=== PATIENT | male | born 1990 | race Caucasian/White ===

== ENCOUNTER 2020-07-11 10:15 | Emergency (ER) | payer MEDICAID, SELFPAY ==
--- NOTE | 2020-07-11 | XR_ITS ---
EXAMINATION: XR SOFT TISSUE NECK CLINICAL INDICATION: Pleural pain COMPARISON: None TECHNIQUE: 2 views of the soft tissue neck were obtained. FINDINGS: Soft tissues the neck have a normal appearance. No thickening of the epiglottis or aryepiglottic folds. The prevertebral soft tissue thickness is normal. No radiopaque foreign body or soft tissue gas. The cervical vertebra have normal height and alignment, and disc spaces are maintained. The lung apices are normal. IMPRESSION: Unremarkable examination.
[2020-07-11 10:51] VITALS: BP 118/83; PULSE 72; RESP 16; TEMP 37.2; O2SAT 99; BMI 25.1
--- NOTE | 2020-07-11 10:59 | ED_ITS ---
HPI - General Adult General Chief complaint: Upper Respiratory Symptoms Stated complaint: Throat Pain Time Seen by Provider: 07/11/20 10:57 Source: patient Mode of arrival: ambulatory Limitations: no limitations History of Present Illness HPI narrative: c/o sore throat malaise,feeling of acid in the esophagua complaint: throat pain Onset (ago): hour(s) (1) Location: mouth Radiation: non-radiation Severity: moderate Severity scale (1-10): 4 Quality: aching Exacerbating factors: none Related Data Previous Rx's Medication Instructions Recorded amoxicillin 500 mg PO Q8H 10 Days #30 cap 07/11/20 ibuprofen 800 mg PO Q8H PRN #10 tab 07/11/20 prednisone 60 mg PO DAILY 3 Days #9 tab 07/11/20 Allergies Allergy/AdvReac Type Severity Reaction Status Date / Time No Known Allergies Allergy Verified 07/11/20 10:56 [No Known Allergies*] Review of Systems Review of Systems: Yes all other systems are reviewed and are negative PMFSH Past Medical History Source: nursing notes reviewed Medical History (Updated 07/11/20 @ 14:12 by Rolando Montgomery MD) No known health problems Social History Social History Advance Directives: No Advance Directives Information Provided: Yes Physical Exam Vital Signs: Vital Signs: Vital Signs Temp Pulse Resp BP Pulse Ox 07/11/20 12:21 98.9 F 76 16 123/78 07/11/20 10:51 98.9 F 72 16 118/83 99 Body Mass Index 25.1 Const: General: cooperative and healthy appearing HENMT: Head: Yes normal to inspection Ears: hearing grossly normal bilate rally General nose exam: Normal external nose present Teeth and gingiva: dentition normal Throat: Yes abnormal tonsil (swelling tonsils) Neck: Neck: Yes normal visual inspection, Yes full ROM and Yes no lymphadenopathy Chest: Chest palpation & inspection: normal inspection of the chest Resp: Effort & Inspection: normal respiratory effort and able to speak in complete sentences Cardio: Rate: regular rate Rhythm: regular rhythm GI: Inspection: Yes normal to inspection Percussion: Yes normal to percussion Auscultation: normal bowel sounds Skin: General skin exam: no rashes or lesions noted Course Course Course Narrative: STREPP NEGATIVE,SOFT TISSUE NECK NEGATIVE,FEELS BETTER AT THIS TIME Medical Decision Making Imaging Data SOFT TISSUE NECK: Radiologist's impression: EXAMINATION: XR SOFT TISSUE NECK CLINICAL INDICATION: Pleural pain COMPARISON: None TECHNIQUE: 2 views of the soft tissue neck were obtained. FINDINGS: Soft tissues the neck have a normal appearance. No thickening of the epiglottis or aryepiglottic folds. The prevertebral soft tissue thickness is normal. No radiopaque foreign body or soft tissue gas. The cervical vertebra have normal height and alignment, and disc spaces are maintained. The lung apices are normal. IMPRESSION: Unremarkable examination. Discharge Plan Discharge Clinical Impression: Pharyngitis Qualifiers: Pharyngitis/tonsillitis etiology: unspecified etiology Qualified Code(s): J02.9 - Acute pharyngitis, unspecified Patient Disposition: Home, Self-Care Instructions: Pharyngitis (ED) Prescriptions: New prednisone 20 mg tablet 60 mg PO DAILY 3 Days Qty: 9 RF: 0 amoxicillin 500 mg capsule 500 mg PO Q8H 10 Days Qty: 30 RF: 0 ibuprofen 800 mg tablet 800 mg PO Q8H PRN (Reason: pain) Qty: 10 RF: 0 Referrals: Devonte Schmitt MD [Primary Care Provider] - 2 days Interventions: ED Discharge Assessment Last Done: 07/11/20 14:28 Discharge Date/Time: 07/11/20 14:30
[2020-07-11] MEDS: dexAMETHasone 2 MG TABLET 10 MG PO (11:38)
[2020-07-11] MEDS: Magnesium Hydrox/Alum Hydrox 30 ML ORAL.SUSP PO (11:39)
[2020-07-11 12:21] VITALS: BP 123/78; PULSE 76; RESP 16; TEMP 37.2
== END 2020-07-11 14:30 | disposition home or self-care (01) ==
PROVIDERS: Emergency Provider Emergency Medicine; PCP Internal Medicine Geriatric Medicine
DX: J06.9 Acute upper respiratory infection, unspecified (principal); J02.9 Acute pharyngitis, unspecified; R07.81 Pleurodynia
CPT/HCPCS: 70360; 87071; 99283; J8540

== ENCOUNTER 2020-08-13 11:59 | Outpatient (REF) | payer MEDICAID, SELFPAY | END 2020-08-13 12:00 | disposition home or self-care (01) | LOC: HO.LAB 11:59 | PROVIDERS: PCP Internal Medicine Geriatric Medicine; Visit Provider Internal Medicine | DX: Z20.828 Contact with and (suspected) exposure to other viral communicable diseases (principal) | CPT/HCPCS: C9803; U0003 ==

== ENCOUNTER 2020-11-09 09:49 | Outpatient (REF) | payer MEDICAID, SELFPAY ==
--- NOTE | ~2020-11-09 | US_ITS ---
EXAMINATION: US RETROPERITONEAL COMPLETE (RENAL) CLINICAL INFORMATION: Renal stone. COMPARISON: None TECHNIQUE: Real-time imaging of the kidneys and bladder. FINDINGS: RIGHT KIDNEY: 10.9 x 6.9 x 5.2 cm (SAG x AP x TRV). The kidney is normal in size, contour, and echogenicity. Renal cortical thickness is normal. No calculi or focal parenchymal lesions. No hydronephrosis. LEFT KIDNEY: 12.1 x 6.7 x 5.9 cm (SAG x AP x TRV). The kidney is normal in size, contour, and echogenicity. Renal cortical thickness is normal. No calculi or focal parenchymal lesions. No hydronephrosis. BLADDER: Well distended and normal. Bilateral ureteral jets are demonstrated. Prevoid bladder volume is 125 mL. Postvoid bladder volume is 15.8 mL. US/US retroperitoneal comp IMPRESSION: No hydronephrosis or nephrolithiasis. Unremarkable urinary bladder.
== END 2020-11-09 09:50 | disposition home or self-care (01) ==
LOC: HO.US 09:49
PROVIDERS: PCP Internal Medicine Geriatric Medicine; Visit Provider Internal Medicine Geriatric Medicine
DX: N20.0 Calculus of kidney (principal)
CPT/HCPCS: 76770

== ENCOUNTER 2020-11-16 14:04 | Emergency (ER) | payer MEDICAID, SELFPAY ==
[2020-11-16 17:03] VITALS: BP 124/81; PULSE 84; RESP 18; TEMP 36.7; O2SAT 98; BMI 26.6
--- NOTE | 2020-11-16 17:42 | ED.EYEPROB ---
HPI - Eye Problem General Chief complaint: Eye Problems Stated complaint: EYE ISSUE Source: patient Mode of arrival: ambulatory Limitations: language barrier History of Present Illness HPI Narrative: 30-year-old male with cerebral palsy and suspected academic impairment presents for eye redness, swelling, and pain. He states to have had this for several days, wakes up with goopy sticky exudate on his eyes. He does not report any upper respiratory infections, trauma, risk for foreign body, and does not wear contact lenses. chief complaint: eye redness Onset (ago): day(s) Onset description: gradual Duration: constant Location: right eye and left eye Eye Symptoms: burning, redness, pain and discharge Place: home Mechanism: none Severity: moderate Severity scale (1-10): 5 If Pain, Quality: burning Associated symptoms: none Treatments Prior to Arrival: none Related Data Patient tetanus UTD: No Previous Rx's Medication Instructions Recorded amoxicillin 500 mg PO Q8H 10 Days #30 cap 07/11/20 ibuprofen 800 mg PO Q8H PRN #10 tab 07/11/20 prednisone 60 mg PO DAILY 3 Days #9 tab 07/11/20 erythromycin 1 appl OPHTHALMIC-LEFT Q6H 7 Days 11/16/20 #1 g erythromycin 1 appl OPHTHALMIC-RIGHT Q6H #1 g 11/16/20 Allergies Allergy/AdvReac Type Severity Reaction Status Date / Time No Known Allergies Allergy Verified 07/11/20 10:56 [No Known Allergies*] Review of Systems Review of Systems: Constitutional: No Fever, No Chills ENT/Mouth: No Ear Pain, No Hoarseness, No sore throat Eyes: No Eye Pain, No Swelling, No Redness, No Foreign Body Cardiovascular: No Chest Pain, No SOB Respiratory: No Cough, No Dyspnea Gastrointestinal: No Nausea, No Vomiting, No Diarrhea, No abdominal Pain Genitourinary: No Dysuria, No Hematuria Musculoskeletal: positive joint pain, No Myalgias, No Joint Swelling Skin: No Skin lacerations, No rash Neuro: No Weakness, No Numbness, No Paresthesias, No Loss of Consciousness, No Dizziness, No Headache Psych: No Anxiety/Panic, No Depression Heme/Lymph: no easy bruising, no Lymphadenopathy Endocrine: No Polyuria, No Polydipsia Yes all other systems are reviewed and are negative [facility] Past Medical History Attestation statement: The following information was validated with the patient. Source: old records reviewed Medical History (Updated 11/16/20 @ 17:52 by Apolonia Dawn NP) No known health problems Social History Social History Advance Directives: No Advance Directives Information Provided: No Physical Exam Vital Signs: Vital Signs: Last Vital Signs Temp 98.1 F 11/16/20 17:03 Pulse 84 11/16/20 17:03 Resp 18 11/16/20 17:03 BP 124/81 11/16/20 17:03 Pulse Ox 98 11/16/20 17:03 Body Mass Index 26.6 Appearance: Alert. Oriented X3. No acute distress. Eyes: Pupils equal, round and reactive to light. 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 Tympanic membranes bilaterally intact Neck: Normal inspection. Neck supple. CVS: Normal heart rate and rhythm. Pulses normal. Respiratory: No respiratory distress. Breath sounds normal. Abdomen: Soft and nontender. Skin: Skin warm and dry. Normal skin color. Normal skin turgor. Extremities: No lower extremity edema. Neuro: No motor deficit. No sensory deficit. Course Course Course Narrative: 30-year-old male with suspected academic impairment presents with eye irritation, redness to the conjunctiva. When he woke up his eye was sealed shut with thick yellow exudate, he needed to wash his face in order to open his eye. 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 He does not use contacts, does not report any risk for foreign body, and wears glasses. Does not know when his last Tdap vaccine was updated. Wood's lamp exam with fluorescein strip did not indicate any uptake, no indication of abrasion, ulceration, globe is intact, no indication of foreign body, eyelid inverted, eye irrigated with ophthalmic irrigation solution. Patient tolerated procedure well. Detailed description and demonstration of how to apply erythromycin eye ointment. Exam suspicious for conjunctivitis, will treat with erythromycin, patient will follow-up with Ophthalmology as needed. interpreter utilized for all correspondence. Google translate utilized for discharge instructions. Patient verbalized understanding of and agrees to plan of care discharge home. MDM - Eye Problem Differential Diagnosis Differential diagnosis: Likely conjunctivitis and subconjunctival hemorrhage Medical Records Attestation: I reviewed the patient's medical records. Lab Data Attestation: I reviewed the patient's lab results. Discharge Plan Discharge Clinical Impression: Bacterial conjunctivitis Patient Disposition: Home, Self-Care Instructions: Conjunctivitis (ED) Additional Instructions: Se le evalu? el dolor y el enrojecimiento de los ojos. Tienes conjuntivitis. Por favor, utilice la pomada para los ojos de eritromicina cada 6 horas marshall los pr?ximos 7 d?as. L?vese las karina antes y despu?s de aplicar la pomada para los ojos. No contamine, utilice el tubo etiquetado a la derecha para el angie derecho y utilice el tubo etiquetado a la izquierda para el angie joe. Por favor, taiwo un seguimiento con el m?dico de atenci?n primaria. Pam en Oftalmolog?a para el seguimiento. Llame y solicite felisha regina seg?n sea necesario. Fausto por elegir mack departamento de emergencias para la evaluaci?n. Por favor, taiwo un seguimiento con el m?dico de atenci?n primaria seg?n sea necesario. Regrese al servicio de urgencias para cualquier s?ntoma nuevo, preocupante o que empeore. You were evaluated for eye pain and redness. You have conjunctivitis. Please use erythromycin eye ointment every 6 hours for the next 7 days. Please wash her hands before and after applying the eye ointment. Do not cross contaminate, use the tube labeled right for the right eye and use the tube labeled left for the left eye. Please follow-up with primary care physician. You may consider calling Dr Orozco in Ophthalmology for follow-up. Please call and request an appointment as needed. Thank you for choosing this emergency department for evaluation. Please follow-up with primary care physician as needed. Return to the emergency department for any new, concerning, or worsening symptoms. Prescriptions: New erythromycin 5 mg/gram (0.5 %) ointment 1 appl ophthalmic-Left Q6H 7 Days Qty: 1 RF: 0 erythromycin 5 mg/gram (0.5 %) ointment 1 appl ophthalmic-Right Q6H Qty: 1 RF: 0 No Action prednisone 20 mg tablet 60 mg PO DAILY 3 Days Qty: 9 RF: 0 amoxicillin 500 mg capsule 500 mg PO Q8H 10 Days Qty: 30 RF: 0 ibuprofen 800 mg tablet 800 mg PO Q8H PRN (Reason: pain) Qty: 10 RF: 0 Referrals: Dru Orozco [Physician] - 2 days (Conjunctivitis) Stand Alone Forms: Work/School Release Interventions: ED Discharge Assessment Last Done: 11/16/20 18:55 Discharge Date/Time: 11/16/20 19:00
[2020-11-16] MEDS: Eye Irrigation Solution 118 ML IRRIG.SOLN 1 APPL EYE-RIGHT (18:41)
[2020-11-16] MEDS: Erythromycin Base 0.5% Oph Oin 1 GM TUBE 1 CM EYE-LEFT (18:41)
[2020-11-16] MEDS: Erythromycin Base 0.5% Oph Oin 1 GM TUBE 1 CM EYE-RIGHT (18:41)
[2020-11-16] MEDS: Tetracaine HCl/PF 0.5% Oph Sol 4 ML DROPS 3 DROP EYE-RIGHT (18:42)
[2020-11-16] MEDS: Fluorescein Sodium STRIP 1 STRIP EYE-RIGHT (18:43)
== END 2020-11-16 19:00 | disposition home or self-care (01) ==
PROVIDERS: Emergency Provider Internal Medicine; PCP Internal Medicine Geriatric Medicine
DX: H10.89 Other conjunctivitis (principal); G80.9 Cerebral palsy, unspecified; Z79.899 Other long term (current) drug therapy
CPT/HCPCS: 90471; 90715; 99284

== ENCOUNTER → 2021-09-21 20:23 | Outpatient (REF) | payer MEDICAID, SELFPAY | LOC: HO.SL 20:23 | PROVIDERS: Visit Provider Internal Medicine Geriatric Medicine | DX: G47.19 Other hypersomnia (principal); R06.83 Snoring | CPT/HCPCS: 95810 ==

== ENCOUNTER 2021-11-01 10:58 | Outpatient (REF) | payer MEDICAID, SELFPAY ==
--- NOTE | ~2021-11-01 | XR_ITS ---
EXAMINATION: XR THORACIC SPINE CLINICAL INFORMATION: Low back pain COMPARISON: None TECHNIQUE: 3 views of the thoracic spine were obtained. FINDINGS: There is no fracture or bone destruction seen and the vertebral alignment is normal. There is no disc space narrowing. There is no abnormality of the paraspinal soft tissues. XR/XR thoracic spine 3V IMPRESSION: No fracture or dislocation.
--- NOTE | ~2021-11-01 | XR_ITS ---
EXAMINATION: XR LUMBAR SPINE CLINICAL INFORMATION: Reason for Exam LOW BACK PAIN, PERSONAL HX OF DISEASES OF THE MS SYS AND CON COMPARISON: None TECHNIQUE: Frontal lateral and coned-down L5-S1 frontal lateral FINDINGS: Five [id number] lumbar vertebrae were identified maintaining normal height and alignments. Narrowing of intervertebral disc spaces suggest underlying degenerative disc disease. Paravertebral soft tissues are unremarkable. There are radiolucencies, most likely superimposed bowel gas.. No radiographic evidence of osteolytic or osteoblastic lesions. XR/XR lumbar spine 4V min IMPRESSION: No fracture or dislocation. Bone alignment satisfactory. Paravertebral soft tissues unremarkable. No radiographic explanation for patient's pain symptoms.
== END 2021-11-01 10:59 | disposition home or self-care (01) ==
LOC: HO.XRAY 10:58
PROVIDERS: PCP Internal Medicine Geriatric Medicine; Visit Provider Internal Medicine Geriatric Medicine
DX: M54.50 Low back pain, unspecified (principal); Z87.39 Personal history of other diseases of the musculoskeletal system and connective tissue
CPT/HCPCS: 72072; 72110

== ENCOUNTER 2022-04-11 14:42 | Outpatient (REF) | payer MEDICAID, SELFPAY ==
--- NOTE | ~2022-04-11 | XR_ITS ---
EXAMINATION: BILATERAL HAND. CLINICAL INFORMATION: Bilateral hand pain. COMPARISON: None TECHNIQUE: 3 views each hand. FINDINGS: Right hand: There is maintained MCP, IP joint space. No visible fracture, bony erosive changes or spurring seen. The soft tissues are normal. Left hand: There is no visible acute fracture, dislocation or subluxation. The joint spaces are maintained normal. The soft tissues are normal. XR/XR hand RT min 3V IMPRESSION: Unremarkable bilateral hand exam.
--- NOTE | ~2022-04-11 | XR_ITS ---
EXAMINATION: BILATERAL HAND. CLINICAL INFORMATION: Bilateral hand pain. COMPARISON: None TECHNIQUE: 3 views each hand. FINDINGS: Right hand: There is maintained MCP, IP joint space. No visible fracture, bony erosive changes or spurring seen. The soft tissues are normal. Left hand: There is no visible acute fracture, dislocation or subluxation. The joint spaces are maintained normal. The soft tissues are normal. XR/XR hand LT min 3V IMPRESSION: Unremarkable bilateral hand exam.
== END 2022-04-11 14:43 | disposition home or self-care (01) ==
LOC: HO.XRAY 14:42
PROVIDERS: PCP Internal Medicine Geriatric Medicine; Visit Provider Internal Medicine Geriatric Medicine
DX: M79.641 Pain in right hand (principal); M79.642 Pain in left hand
CPT/HCPCS: 73130

== ENCOUNTER 2022-06-15 07:42 | Emergency (ER) | payer MEDICAID, SELFPAY ==
[2022-06-15 08:21] VITALS: BP 121/88; PULSE 70; RESP 16; TEMP 36.4; O2SAT 100; BMI 27.6
--- NOTE | 2022-06-15 10:04 | ED.EXTPRO ---
HPI - Extremity Problem General Chief complaint: Extremity Problem Stated complaint: L foot toe ingrown, hard to walk Time Seen by Provider: 06/15/22 09:04 Source: patient Mode of arrival: ambulatory History of Present Illness HPI Narrative: 32-year-old male with no significant past medical history presenting to the ED complaining of left great toe ingrown toenail since yesterday. Take area has been coming increasingly painful, try to cut out at home on his own. Reports pain with palpation, ambulation and movement. Denies drainage from area, fever/chills, numbness or tingling MD Complaint: extremity pain Onset (ago): day(s) Related Data Previous Rx's Medication Instructions Recorded amoxicillin 500 mg capsule 500 mg PO Q8H 10 days #30 caps 07/11/20 ibuprofen 800 mg tablet 800 mg PO Q8H PRN pain #10 tabs 07/11/20 prednisone 20 mg tablet 60 mg PO DAILY 3 days #9 tabs 07/11/20 erythromycin 5 mg/gram (0.5 %) eye 1 appl ophthalmic-Left Q6H 7 days 11/16/20 ointment #1 g erythromycin 5 mg/gram (0.5 %) eye 1 appl ophthalmic-Right Q6H #1 g 11/16/20 ointment neomycin-bacitracn Zn-polymyx 3.5 1 appl topical BID 7 days #28 grams 06/15/22 mg-400 unit-5,000 unit/gram top oint (Triple Antibiotic) Allergies Allergy/AdvReac Type Severity Reaction Status Date / Time No Known Allergies Allergy Verified 07/11/20 10:56 [No Known Allergies*] Review of Systems Review of Systems: Constitutional: No Fever, No Chills ENT/Mouth: No Ear Pain, No Nasal Congestion, No sore throat, No Rhinorrhea, No Swallowing Difficulty Cardiovascular: No Chest Pain, No SOB Respiratory: No Cough, No Sputum, No Wheezing Gastrointestinal: No Nausea, No Vomiting, No Diarrhea, No Constipation, No Abdominal pain Genitourinary: No Dysuria, No Urinary Frequency, No Hematuria, No Flank Pain Musculoskeletal: No joint pain, No Myalgias, No Joint Swelling Skin: + Skin Lesions, No rash Neuro: No Weakness, No Numbness, No Paresthesias Yes all other systems are reviewed and are negative Constitutional: Constitutional: Reports as per HPI [facility] Past Medical History Attestation statement: The following information was validated with the patient. Medical History No known health problems Social History Social History Advance Directives: No Advance Directives Information Provided: No Physical Exam Vital Signs: Vital Signs: Last Vital Signs Temp 97.5 F 06/15/22 08:21 Pulse 70 06/15/22 08:21 Resp 16 06/15/22 08:21 BP 121/88 06/15/22 08:21 Pulse Ox 100 06/15/22 08:21 O2 Del Method 06/15/22 08:21 BMI result Body Mass Index 27.6 Const: General: cooperative, healthy appearing and no acute distress Orientation/consciousness: patient oriented x3 Limitations: no limitations HEENT: Head: Yes normal to inspection and Yes atraumatic Ears: hearing grossly normal bilaterally General nose exam: Normal external nose present Face and sinus: Yes normal facial exam Eyes: General: appearance normal, both eyes and all related structures EOM: EOMs intact bilaterally Neck: Neck: Yes normal visual inspection and Yes no meningeal signs Resp: Effort & Inspection: normal respiratory effort and no respiratory distress Cardio: Rate: regular rate Heart sounds: S1 normal heart sound present and S2 normal heart sound present Peripheral pulses: dorsalis pedis present GI: Inspection: Yes normal to inspection Palpation (GI): Soft to palpation, nontender, no guarding and not rigid : General: Yes no CVA tenderness Back/Spine/Pelvis: Back: no CVA tenderness Skin: Rashes: no rashes Wounds: no wounds Neuro: General: patient oriented x3, tone normal and no meningeal signs Gait exam (Neuro): Normal gait present Extrem: Other: Left great toe medial aspect with mild ingrown toenail. Mild appreciable swelling. Tender to palpation. No warmth, erythema, fluctuance/induration or drainage. MDM - Extremity (Nontraumatic) MDM Narrative Medical decision making narrative: 32-year-old male with no significant past medical history presenting to the ED complaining of left great toe ingrown toenail since yesterday. On exam vital signs stable, NAD/nontoxic appearing, physical exam as above with appreciable ingrown toenails to left great toe. Will remove in the ED per patient request. Recommended close podiatry follow-up Medical Records Attestation: I reviewed the patient's medical records. Lab Data Attestation: I reviewed the patient's lab results. Procedures Procedure Narrative Procedure Narrative: Ingrown toenail removal Left great toe medial aspect Digital block performed with 1% lidocaine; 3 mL used Nail removed with forceps and scissors No complications Dressing applied Discharge Plan Discharge Clinical Impression: Ingrowing toenail Patient Disposition: Home, Self-Care Instructions: Ingrown Nail (ED) Additional Instructions: Your ingrown toenail was removed today in the emergency department. Apply topical Neosporin at home twice daily. You need to follow-up with a pullman car clerk If area begins to look infected, is red, increasingly swollen, there is drainage or you have fever return to the emergency department Take Tylenol and Motrin for pain Power u?a encarnada fue extra?da hoy en el departamento de emergencias. Aplique Neosporin t?dinh en casa dos veces al d?a. Necesitas un seguimiento con un pod?logo. Si el ?allie comienza a verse infectada, est? cash, cada vez m?s hinchada, hay drenaje o tiene fiebre, regrese al departamento de emergencias. Bowring Tylenol y Motrin para el dolor Prescriptions: New Triple Antibiotic 3.5mg-400 unit- 5,000 unit/gram ointment 1 appl topical BID 7 Days Qty: 28 0RF No Action prednisone 20 mg tablet 60 mg PO DAILY 3 Days Qty: 9 0RF amoxicillin 500 mg capsule 500 mg PO Q8H 10 Days Qty: 30 0RF ibuprofen 800 mg tablet 800 mg PO Q8H PRN (Reason: pain) Qty: 10 0RF Rx Instructions: PRN erythromycin 5 mg/gram (0.5 %) ointment 1 appl ophthalmic-Left Q6H 7 Days Qty: 1 0RF Rx Instructions: Please label in [place] for the left eye erythromycin 5 mg/gram (0.5 %) ointment 1 appl ophthalmic-Right Q6H Qty: 1 0RF Rx Instructions: Please label in [place] for the right eye Referrals: Orlando,Navneet, MD [Physician] - Stand Alone Forms: Work/School Release Print Language: [place]
[2022-06-15] MEDS: Lidocaine HCl 1 % MPF 2 ML VIAL INFILTRATI ×2 (10:19)
== END 2022-06-15 10:31 | disposition home or self-care (01) ==
PROVIDERS: Emergency Provider Emergency Medicine; PCP Internal Medicine Geriatric Medicine
DX: L60.0 Ingrowing nail (principal); Z79.899 Other long term (current) drug therapy
CPT/HCPCS: 11730; 99283

== ENCOUNTER 2023-05-15 11:20 | Emergency (ER) | payer MEDICAID, SELFPAY ==
--- NOTE | ~2023-05-15 | XR_ITS ---
EXAMINATION: XR RIBS, RIGHT, PA CHEST CLINICAL INFORMATION: Rib pain. COMPARISON: Chest and rib radiographs dated 05/23/2020. TECHNIQUE: 3 views of the right ribs were obtained along with a PA view of the chest. A skin marker was placed over the inferior right ribs. FINDINGS: Lungs are clear. No consolidation, pneumothorax, or pleural effusion. The cardiomediastinal silhouette and pulmonary vasculature are normal. Osseous structures are unremarkable. Ribs are intact. No fractures are identified. XR/XR ribs RT min 3V w CXR1V IMPRESSION: Unremarkable examination.
[2023-05-15 11:27] VITALS: BP 131/82; PULSE 70; RESP 18; TEMP 36.4; O2SAT 98; BMI 26.3
--- NOTE | 2023-05-15 11:28 | ED.ABDPAIN ---
HPI - Abdominal Pain General Chief Complaint: General Medical Stated Complaint: r side abd pain Time Seen by Provider: 05/15/23 14:17 Source: patient and other Mode of arrival: ambulatory History of Present Illness HPI narrative: 33-year-old male who reports right-sided rib pain after he fell 9 days ago. He denies any associated nausea, vomiting, fever, chills and denies any new cough or shortness of breath. Related Data Previous Rx's Medication Instructions Recorded amoxicillin 500 mg capsule 500 mg PO Q8H 10 days #30 caps 07/11/20 ibuprofen 800 mg tablet 800 mg PO Q8H PRN pain #10 tabs 07/11/20 prednisone 20 mg tablet 60 mg PO DAILY 3 days #9 tabs 07/11/20 erythromycin 5 mg/gram (0.5 %) eye 1 appl ophthalmic-Left Q6H 7 days 11/16/20 ointment #1 g erythromycin 5 mg/gram (0.5 %) eye 1 appl ophthalmic-Right Q6H #1 g 11/16/20 ointment neomycin-bacitracn Zn-polymyx 3.5 1 appl topical BID 7 days #28 grams 06/15/22 mg-400 unit-5,000 unit/gram top oint (Triple Antibiotic) Allergies Allergy/AdvReac Type Severity Reaction Status Date / Time No Known Allergies Allergy Verified 07/11/20 10:56 [No Known Allergies*] Review of Systems Review of Systems Pertinent positives and negatives as stated in HPI [facility] Past Medical History Source: nursing notes reviewed Medical History No known health problems Social History Social History Advance Directives: No Advance Directives Information Provided: No Physical Exam ED Vital Signs: Vital Signs - 24 hr 05/15/23 11:27 Temperature 97.6 F Pulse Rate 70 Respiratory Rate 18 Blood Pressure 131/82 Pulse Oximetry 98 Oxygen Delivery Method Room Air BMI result Body Mass Index 26.3 VITAL SIGNS: Reviewed. GENERAL: Well developed, well nourished, in no acute distress. HEAD: Normocephalic/atraumatic EYES: PERRLA, EOMI EARS: Ext canals without abnormality NOSE: Nares patent bilateral OROPHARYNX: no oral lesions noted, posterior pharynx clear NECK: Supple, no adenopathy LUNGS: Normal breath sounds. No adventitious sounds or accessory muscle use. SpO2<98>; CHEST WALL: No deformity, crepitus, tenderness to palpation CARDIOVASCULAR: Regular rate and rhythm without noted murmurs ABDOMEN: Soft, non-tender, non-distended with bowel sounds. MUSCULOSKELETAL: No tenderness, deformities, or effusions noted on gross inspection. EXTREMITIES: No cyanosis, clubbing or edema. SKIN: Inspection of the skin reveals no rashes NEUROLOGIC: Alert and oriented x 4. Strength and sensation to light touch were grossly intact x 4. Course Course Course Narrative: RME: 33yo M w/PMHx brain paralysis c/o right side pain x 9 days s/p mechanical trip and fall. denies N/V, dysuria/hematuria + healing ecchymosis noted to right anterior lateral ribs with reproducible tenderness. No flail chest. Rib x-ray ordered Full HPI, ROS and PE to be performed by primary ED provider. Medical Decision Making Medical Decision Making [facility] Narrative: 33-year-old male with history and clinical presentation, DDX: Pneumothorax, rib fracture, pneumonia. I reviewed imaging studies which is negative for pneumothorax or pneumonia and otherwise my interpretation is in agreement with radiology's impression. Patient was given combination analgesics and lidocaine patch for his pain. He is otherwise discharged home with instructions follow-up with Dr. Schmitt. Differential Diagnosis Differential Diagnoses: The differential diagnosis associated with the presentation includes Please see the discussion above Admission/Observation Consideration of admission/observation: Escalation of care including admission/observation considered Please see the discussion above Radiology Impression Discussion of test interpretation with radiology: I have reviewed the radiologist's reading. Radiologist Impression: Please see the discussion above External Record Review External record reviewed: Outpatient record and Prior outpatient labs Medications Administered Discontinued Medications Generic Name Dose Route Start Last Admin Trade Name Homeq PRN Reason Stop Dose Admin Acetaminophen 975 mg 05/15/23 15:30 05/15/23 15:37 Acetaminophen 325 Mg Tablet PO 05/15/23 15:31 975 mg ONCE ONE Administration Ketorolac Tromethamine 15 mg 05/15/23 15:30 05/15/23 15:38 Ketorolac Tromethamine 15 Mg/Ml Vial IM 05/15/23 15:31 15 mg ONCE ONE Administration Lidocaine 1 patch 05/15/23 15:31 05/15/23 15:39 Lidocaine 4 % Patch Adh..Patch TRANSDERMA 05/15/23 15:32 1 patch ONCE ONE Administration Protocol Discharge Plan Discharge Clinical Impression: Chest wall pain Patient Disposition: Home, Self-Care Instructions: Chest Wall Pain (ED) Additional Instructions: 1. Recomendar Tylenol/ibuprofeno de venta giovanna seg?n sea necesario para controlar el dolor. Adem?s, considere los parches de lidoca?na de venta giovanna para un alivio adicional de los s?ntomas. 2. Deber? hacer un seguimiento con kiser m?dico de atenci?n primaria llamando al consultorio por la ma?boubacar y programando felisha regina para felisha reevaluaci?n. Regrese a la carl de emergencias si los s?ntomas empeoran. 1. Recommend [id number] Tylenol/ibuprofen as needed for pain control. Also, consider [id number] lidocaine patches for additional symptom relief. 2. You will need to follow-up with your primary care doctor by calling the office in the morning and setting up an appointment for re-evaluation. Return to the ER for any worsening symptoms. Prescriptions: No Action prednisone 20 mg tablet 60 mg PO DAILY 3 Days Qty: 9 0RF amoxicillin 500 mg capsule 500 mg PO Q8H 10 Days Qty: 30 0RF ibuprofen 800 mg tablet 800 mg PO Q8H PRN (Reason: pain) Qty: 10 0RF Rx Instructions: PRN erythromycin 5 mg/gram (0.5 %) ointment 1 appl ophthalmic-Left Q6H 7 Days Qty: 1 0RF Rx Instructions: Please label in Armenian for the left eye erythromycin 5 mg/gram (0.5 %) ointment 1 appl ophthalmic-Right Q6H Qty: 1 0RF Rx Instructions: Please label in Armenian for the right eye Triple Antibiotic 3.5mg-400 unit- 5,000 unit/gram ointment 1 appl topical BID 7 Days Qty: 28 0RF Referrals: Name,MD Devonte [Primary Care Provider] - Stand Alone Forms: Work/School Release Print Language: Armenian
[2023-05-15] MEDS: Acetaminophen 325 MG TABLET 975 MG PO (15:37)
[2023-05-15] MEDS: Ketorolac Tromethamine 15 MG/ML VIAL IM (15:38)
[2023-05-15] MEDS: Lidocaine 4 % Patch ADH..PATCH 1 PATCH TRANSDERMA (15:39)
== END 2023-05-15 15:45 | disposition home or self-care (01) ==
PROVIDERS: Emergency Provider Student in an Organized Health Care Education/Training Program; PCP Internal Medicine Geriatric Medicine
DX: R07.89 Other chest pain (principal)
CPT/HCPCS: 71101; 96372; 99283; 99284; J1885

== ENCOUNTER 2023-11-01 11:37 | Outpatient (REF) | payer MEDICAID, SELFPAY ==
[2023-11-01 13:33] LABS: Anion Gap 11 (12-20); Blood Urea Nitrogen 11 mg/dL (9-16); Carbon Dioxide 26 mmol/L (22-29); Chloride 105 mmol/L (96-108); Estimated Glomerular Filt Rate > 60; Glucose Random 94 mg/dL (60-115); Potassium 4.2 mmol/L (3.3-5.1); Sodium 138 mmol/L (135-145)
== END 2023-11-01 11:38 | disposition home or self-care (01) ==
LOC: HO.HHCL 11:37
PROVIDERS: Visit Provider Emergency Medicine
DX: R10.32 Left lower quadrant pain (principal)
CPT/HCPCS: 36415; 80048

== ENCOUNTER 2023-11-01 17:23 | Emergency (ER) | payer OTHER, SELFPAY ==
--- NOTE | ~2023-11-01 | XR_ITS ---
EXAMINATION: XR ABDOMEN KUB CLINICAL INDICATION: Left-sided discomfort, stool versus stone COMPARISON: None available. TECHNIQUE: AP view of the abdomen. FINDINGS: Bowel gas pattern is nonobstructive. Overall mild to moderate volume of stool in the colon. No definite abnormal calcifications are seen. No acute osseous findings are seen. XR/XR KUB IMPRESSION: Nonobstructive bowel gas pattern. Mild to moderate volume of stool.
[2023-11-01 18:09] VITALS: BP 146/86; PULSE 97; RESP 16; TEMP 36.9; O2SAT 97; BMI 27.9
--- NOTE | 2023-11-01 18:14 | ED_ITS ---
HPI - General Adult General Chief complaint: Abdominal Pain Stated complaint: abd pain, referred by [facility] Time Seen by Provider: 11/02/23 00:44 Source: patient and family Mode of arrival: ambulatory History of Present Illness HPI narrative: 33-year-old male sent in by his primary care doctor for 2 weeks of left-sided abdominal discomfort that comes and goes and is not associated with fever, chills, occasionally nausea but no vomiting and he denies any urinary symptoms such as frequency/burning or pain. Related Data Previous Rx's Medication Instructions Recorded amoxicillin 500 mg capsule 500 mg PO Q8H 10 days #30 caps 07/11/20 ibuprofen 800 mg tablet 800 mg PO Q8H PRN pain #10 tabs 07/11/20 prednisone 20 mg tablet 60 mg (3 x 20 mg) PO DAILY 3 days 07/11/20 #9 tabs erythromycin 5 mg/gram (0.5 %) eye 1 appl ophthalmic-Left Q6H 7 days 11/16/20 ointment #1 g erythromycin 5 mg/gram (0.5 %) eye 1 appl ophthalmic-Right Q6H #1 g 11/16/20 ointment neomycin-bacitracn Zn-polymyx 3.5 1 appl topical BID 7 days #28 grams 06/15/22 mg-400 unit-5,000 unit/gram top oint (Triple Antibiotic) Allergies Allergy/AdvReac Type Severity Reaction Status Date / Time No Known Allergies Allergy Verified 07/11/20 10:56 [No Known Allergies*] Review of Systems 2 Review of Systems: Pertinent positives and negatives as stated in HPI [facility] Past Medical History Source: nursing notes reviewed Medical History No known health problems Social History Social History Advance Directives: No Advance Directives Information Provided: Yes Physical Exam ED Vital Signs: Vital Signs - 24 hr 11/01/23 18:09 11/02/23 00:06 11/02/23 00:43 Temperature 98.5 F 98.2 F 98.7 F Pulse Rate 97 76 78 Respiratory Rate 16 16 20 Blood Pressure 146/86 H 127/83 136/84 Pulse Oximetry 97 97 96 Oxygen Delivery Method Room Air Room Air Room Air BMI result Body Mass Index 27.9 VITAL SIGNS: Reviewed. GENERAL: Well developed, well nourished, in no acute distress. HEAD: Normocephalic/atraumatic EYES: PERRLA, EOMI EARS: Ext canals without abnormality NOSE: Nares patent bilateral OROPHARYNX: no oral lesions noted, posterior pharynx clear NECK: Supple, no adenopathy LUNGS: Normal breath sounds. No adventitious sounds or accessory muscle use. SpO2<96> CARDIOVASCULAR: Regular rate and rhythm without noted murmurs ABDOMEN: Soft, mild discomfort on deep palpation in the left lower quadrant, non-distended with bowel sounds, no hernias noted. MUSCULOSKELETAL: No tenderness, deformities, or effusions noted on gross inspection. EXTREMITIES: No cyanosis, clubbing or edema. SKIN: Inspection of the skin reveals no rashes NEUROLOGIC: Alert and oriented x 4. Strength and sensation to light touch were grossly intact x 4. Course Course Course Narrative: RME: 33 year old male presents to the ED for left flank pain and abdominal pain. patient sent to the ED from [facility]. labss and UA ordered. Medical Decision Making Medical Decision Making [facility] Narrative: 33-year-old male with history and clinical presentation, DDX: Constipation, low clinical suspicion for renal colic and no clinical suspicion for diverticulitis, not consistent with a urinary tract infection but could be musculoskeletal. I reviewed all investigations and hematologic indices are without acute abnormalities. Chemistry indices do not demonstrate an ARABELLA or electrolyte/liver enzyme derangements, lipase is within normal limits. Urinalysis is negative for UTI or hematuria and KUB demonstrates a normal bowel gas pattern and moderate stool volume. My interpretation is patient may be suffering from intermittent constipation/gas, this was communicated with patient and his family member and he is otherwise discharged home in stable condition. Differential Diagnosis Differential Diagnoses: The differential diagnosis associated with the presentation includes Please see the discussion above Admission/Observation Consideration of admission/observation: Escalation of care including admission/observation considered Please see the discussion above Lab Data [facility] Lab Attestation statement: I reviewed the patient's lab results. Please see the discussion above 11/01/23 18:26 11/01/23 18:26 Labs: Lab Results 11/01/23 11/02/23 Range/Units 18:26 01:28 WBC 7.9 (4.8-10.8) X10*3/uL RBC 5.19 (4.60-5.80) X10*6/uL Hgb 15.3 (14.0-18.0) g/dl Hct 43.2 (42.0-52.0) % MCV 83.2 (80.0-98.0) fL MCH 29.5 (27.0-33.0) pg MCHC 35.4 (31.0-36.0) g/dl RDW 12.5 (11.0-16.0) % Plt Count 253 (160-400) X10*3/uL MPV 10.0 (9.4-12.4) fL Immature Gran % (Auto) 0.3 (0.0-0.4) % Neut % (Auto) 60.3 (45-73) % Lymph % (Auto) 31.2 (20-40) % [place] % (Auto) 6.8 (2-11) % Eos % (Auto) 1.1 (0-4) % Baso % (Auto) 0.3 (0-2) % Lymph # (Auto) 2.5 (1.2-4.9) X10*3/uL [place] # (Auto) 0.5 (0.1-1.2) X10*3/uL Eos # (Auto) 0.1 (0.0-0.4) X10*3/uL Baso # (Auto) 0.0 (0.0-0.2) X10*3/uL Abs Immat Gran (auto) 0.02 (0.00-0.03) X10*3/uL Absolute Neuts (auto) 4.8 (2.0-8.3) x10*3/uL Absolute Nucleated RBC 0.000 (0.0-0.012) X10*3/uL Nucleated RBC % (auto) 0.0 (0.0-0.2) /100WBC Sodium 138 (135-145) mmol/L Potassium 3.6 (3.3-5.1) mmol/L Chloride 106 (96-108) mmol/L Carbon Dioxide 23 (22-29) mmol/L Anion Gap 13 (12-20) BUN 11 (9-16) mg/dL Creatinine 0.76 (0.5-1.4) mg/dL Estim Creat Clear Calc 157.5 Estimated GFR > 60 Random Glucose 119 H (60-115) mg/dL Calcium 9.6 (8.4-10.2) mg/dL Total Bilirubin 1.0 (0.0-1.0) mg/dL AST 28 (5-37) U/L ALT 74 H (0-40) U/L Alkaline Phosphatase 76 (39-117) U/L Total Protein 7.9 (6.5-8.0) g/dL Albumin 4.3 (3.5-5.0) g/dL Lipase 19 (8-78) U/L Urine Color Yellow Urine Appearance Clear Urine pH 5.5 (5.0-9.0) Ur Specific [place] >= 1.030 H (1.005-1.025) Urine Protein Negative (Neg-Trace) mg/dL Urine Glucose (UA) Negative (Negative) mg/dL Urine Ketones Negative (Negative) mg/dL Urine Blood Negative (Negative) Urine Nitrite Negative (Negative) Ur Leukocyte Esterase Negative (Negative) Radiology Impression Discussion of test interpretation with radiology: I have reviewed the radiologist's reading. Radiologist Impression: Please see the discussion above External Record Review External record reviewed: Outpatient record and Prior outpatient labs Discharge Plan Discharge Clinical Impression: Abdominal discomfort in left lower quadrant, Constipation Patient Disposition: Home, Self-Care Instructions: Constipation (ED), High Fiber Diet (ED) Additional Instructions: 1. Reanudar todos los medicamentos caseros seg?n lo recetado. 2. Recomendar seguimiento con kiser m?dico de atenci?n primaria en los pr?ximos 1-2 d?as. Regrese a la carl de emergencias si los s?ntomas empeoran, shilo fiebre, escalofr?os, n?useas o v?mitos. 1. Resume all home medications as prescribed. 2. Recommend follow-up with your primary care doctor in the next 1-2 days. Return to the ER for any worsening symptoms such as fevers or chills or nausea or vomiting. Prescriptions: No Action prednisone 20 mg tablet 60 mg PO DAILY 3 Days Qty: 9 0RF amoxicillin 500 mg capsule 500 mg PO Q8H 10 Days Qty: 30 0RF ibuprofen 800 mg tablet 800 mg PO Q8H PRN (Reason: pain) Qty: 10 0RF Rx Instructions: PRN erythromycin 5 mg/gram (0.5 %) ointment 1 appl ophthalmic-Left Q6H 7 Days Qty: 1 0RF Rx Instructions: Please label in Moroccan for the left eye erythromycin 5 mg/gram (0.5 %) ointment 1 appl ophthalmic-Right Q6H Qty: 1 0RF Rx Instructions: Please label in Moroccan for the right eye Triple Antibiotic 3.5mg-400 unit- 5,000 unit/gram ointment 1 appl topical BID 7 Days Qty: 28 0RF Referrals: Name,MD Devonte [Primary Care Provider] - Interventions: ED Discharge Assessment Last Done: 11/02/23 01:58 Discharge Date/Time: 11/02/23 02:00 Print Language: Moroccan
[2023-11-01 18:32] LABS: MANUAL DIFF FLAG NO
[2023-11-01 18:34] LABS: Basophils Percent Auto 0.3 % (0-2); Eosinophils Absolute Auto 0.1 X10*3/uL (0.0-0.4); Eosinophils Percent Auto 1.1 % (0-4); Hematocrit 43.2 % (42.0-52.0); Hemoglobin 15.3 g/dl (14.0-18.0); Imm Gran Abs Auto 0.02 X10*3/uL (0.00-0.03); Imm Gran Pct Auto 0.3 % (0.0-0.4); Lymphocytes Absolute Auto 2.5 X10*3/uL (1.2-4.9); Lymphocytes Percent Auto 31.2 % (20-40); Mean Corpuscular HGB Conc 35.4 g/dl (31.0-36.0); Mean Corpuscular Hemoglobin 29.5 pg (27.0-33.0); Mean Corpuscular Volume 83.2 fL (80.0-98.0); Monocytes Absolute Auto 0.5 X10*3/uL (0.1-1.2); Monocytes Percent Auto 6.8 % (2-11); Neutrophils Absolute Auto 4.8 x10*3/uL (2.0-8.3); Neutrophils Percent Auto 60.3 % (45-73); Platelet Count 253 X10*3/uL (160-400); Red Blood Count 5.19 X10*6/uL (4.60-5.80); Red Cell Distribution Width 12.5 % (11.0-16.0); White Blood Count 7.9 X10*3/uL (4.8-10.8)
[2023-11-01 18:47] LABS: Alanine Aminotransferase 74 U/L (0-40); Albumin Level 4.3 g/dL (3.5-5.0); Alkaline Phosphatase 76 U/L (39-117); Anion Gap 13 (12-20); Aspartate Amino Transferase 28 U/L (5-37); Blood Urea Nitrogen 11 mg/dL (9-16); Calcium 9.6 mg/dL (8.4-10.2); Carbon Dioxide 23 mmol/L (22-29); Chloride 106 mmol/L (96-108); Creatinine Clr Calc Pharmacy 157.5; Estimated Glomerular Filt Rate > 60; Glucose Random 119 mg/dL (60-115); Lipase 19 U/L (8-78); Potassium 3.6 mmol/L (3.3-5.1); Sodium 138 mmol/L (135-145); Total Protein 7.9 g/dL (6.5-8.0)
[2023-11-02 00:06] VITALS: BP 127/83; PULSE 76; RESP 16; TEMP 36.8; O2SAT 97
[2023-11-02 00:43] VITALS: BP 136/84; PULSE 78; RESP 20; TEMP 37.1; O2SAT 96
[2023-11-02 01:39] LABS: Appearance Urine Clear; Color Urine Yellow; Glucose Urine UA Negative (Negative); Leukocyte Esterase Urine Negative (Negative); Nitrite Urine Negative (Negative); PH 5.5 (5.0-9.0); Specific Gravity - Urine >= 1.030 (1.005-1.025); Urine Blood Negative (Negative); Urine Ketones Negative (Negative); Urine Protein Negative (Neg-Trace)
== END 2023-11-02 02:00 | disposition home or self-care (01) ==
PROVIDERS: Physician Assistant; Emergency Provider Student in an Organized Health Care Education/Training Program; PCP Internal Medicine Geriatric Medicine
DX: K59.00 Constipation, unspecified (principal); R10.32 Left lower quadrant pain; Z79.899 Other long term (current) drug therapy
CPT/HCPCS: 36415; 74018; 80053; 81003; 83690; 85025; 99283; 99284

== ENCOUNTER 2024-02-20 11:21 | Outpatient (REF) | payer OTHER, SELFPAY ==
[2024-02-20 13:13] LABS: MANUAL DIFF FLAG NO
[2024-02-20 13:29] LABS: Basophils Percent Auto 0.3 % (0-2); Eosinophils Absolute Auto 0.1 X10*3/uL (0.0-0.4); Hematocrit 43.9 % (42.0-52.0); Hemoglobin 15.1 g/dl (14.0-18.0); Imm Gran Abs Auto 0.01 X10*3/uL (0.00-0.03); Imm Gran Pct Auto 0.2 % (0.0-0.4); Lymphocytes Absolute Auto 2.3 X10*3/uL (1.2-4.9); Lymphocytes Percent Auto 37.8 % (20-40); Mean Corpuscular HGB Conc 34.4 g/dl (31.0-36.0); Mean Corpuscular Hemoglobin 29.5 pg (27.0-33.0); Mean Corpuscular Volume 85.7 fL (80.0-98.0); Mean Platelet Volume 10.8 fL (9.4-12.4); Monocytes Absolute Auto 0.4 X10*3/uL (0.1-1.2); Monocytes Percent Auto 7.1 % (2-11); Neutrophils Absolute Auto 3.2 x10*3/uL (2.0-8.3); Neutrophils Percent Auto 52.6 % (45-73); Platelet Count 253 X10*3/uL (160-400); Red Blood Count 5.12 X10*6/uL (4.60-5.80); Red Cell Distribution Width 12.5 % (11.0-16.0); White Blood Count 6.1 X10*3/uL (4.8-10.8)
[2024-02-20 13:57] LABS: Alanine Aminotransferase 65 U/L (0-40); Albumin Level 4.4 g/dL (3.5-5.0); Alkaline Phosphatase 84 U/L (39-117); Anion Gap 14 (12-20); Aspartate Amino Transferase 24 U/L (5-37); Bilirubin Total 0.9 mg/dL (0.0-1.0); Blood Urea Nitrogen 11 mg/dL (9-16); Calcium 9.6 mg/dL (8.4-10.2); Carbon Dioxide 25 mmol/L (22-29); Chloride 107 mmol/L (96-108); Cholesterol 182 mg/dL (<200); Estimated Glomerular Filt Rate > 60; Glucose Random 90 mg/dL (60-115); HDL Cholesterol 38 mg/dL (>40); LDL Cholesterol Calculated 119 mg/dL (<100); Potassium 4.1 mmol/L (3.3-5.1); Sodium 142 mmol/L (135-145); Total Protein 7.9 g/dL (6.5-8.0); Triglycerides 126 mg/dL (<150)
== END 2024-02-20 11:22 | disposition home or self-care (01) ==
LOC: HO.HHCL 11:21
PROVIDERS: Visit Provider Internal Medicine Geriatric Medicine
DX: Z00.00 Encounter for general adult medical examination without abnormal findings (principal); Z13.1 Encounter for screening for diabetes mellitus; Z13.220 Encounter for screening for lipoid disorders
CPT/HCPCS: 36415; 80053; 80061; 85025

== ENCOUNTER 2024-09-01 10:14 | Emergency (ER) | payer OTHER, SELFPAY ==
--- NOTE | ~2024-09-01 | XR_ITS ---
EXAMINATION: XR CERVICAL SPINE CLINICAL INFORMATION: pain COMPARISON: None available. TECHNIQUE: 3 views of the cervical spine were obtained. FINDINGS: Straightening of cervical lordosis. The cervical vertebral bodies demonstrate normal height. Overall alignment is maintained. The C7-T1 junction is obscured by overlapping shadows on the lateral projection. The remaining intervertebral disc heights are normal. The atlantodental interval is maintained. Normal alignment of lateral masses of C1 over C2. The posterior elements appear intact. The prevertebral soft tissue thickness is within normal limits. XR/XR cervical spine 3V IMPRESSION: No radiographic evidence of acute abnormality involving the cervical spine. No significant degenerative changes. Electronically signed by: Rashel Carlisle MD 09/01/2024 11:41 AM YENIFER PHAM
[2024-09-01 10:16] VITALS: BP 151/85; PULSE 70; RESP 20; TEMP 36.1; O2SAT 97; BMI 28.7
[2024-09-01 11:15] VITALS: BP 135/89; PULSE 76; RESP 16; TEMP 36.6; O2SAT 95
--- NOTE | 2024-09-01 13:29 | ED_ITS ---
HPI - General Adult General Chief complaint: Neck Pain/Injury Stated complaint: hit head 2 days ago/pain down back Time Seen by Provider: 09/01/24 12:23 Source: patient Mode of arrival: ambulatory Limitations: no limitations History of Present Illness ED Provider: Gurinder SPICER HPI narrative: 34-year-old male healthy with no past medical history presents to ED for neck pain after hitting. On bottom of syncope while he was fixing bottom of sink. Patient put his head up and hit his head on a metal part of the sink on Monday. Patient denies any loss of consciousness, nausea, vomiting, or dizziness. Patient only states posterior neck pain. Related Data Previous Rx's ?Medication ?Instructions ?Recorded amoxicillin 500 mg capsule 500 mg PO Q8H 10 days #30 caps 07/11/20 ibuprofen 800 mg tablet 800 mg PO Q8H PRN pain #10 tabs 07/11/20 prednisone 20 mg tablet 60 mg (3 x 20 mg) PO DAILY 3 days 07/11/20 #9 tabs erythromycin 5 mg/gram (0.5 %) eye 1 appl ophthalmic-Left Q6H 7 days 11/16/20 ointment #1 g erythromycin 5 mg/gram (0.5 %) eye 1 appl ophthalmic-Right Q6H #1 g 11/16/20 ointment neomycin-bacitracn Zn-polymyx 3.5 1 appl topical BID 7 days #28 grams 06/15/22 mg-400 unit-5,000 unit/gram top oint (Triple Antibiotic) naproxen 500 mg tablet 500 mg PO BID PRN pain 7 days #14 09/01/24 tabs Allergies Allergy/AdvReac Type Severity Reaction Status Date / Time No Known Allergies Allergy Verified 09/01/24 10:17 [No Known Allergies*] Review of Systems Review of Systems: neck pain Yes all other systems are reviewed and are negative PMFSH Past Medical History Medical History No known health problems Social History Social History Advance Directives: No Advance Directives Information Provided: Yes Physical Exam ED Vital Signs: Vital Signs - 24 hr 09/01/24 10:16 09/01/24 11:15 12/01/24 14:21 Temperature 97 F 97.8 F 97.8 F Pulse Rate 70 76 76 Respiratory Rate 20 16 16 Blood Pressure 151/85 H 135/89 135/89 Pulse Oximetry 97 95 95 Oxygen Delivery Method Room Air Room Air BMI result Body Mass Index 28.7 Const General: cooperative, healthy appearing, comfortable, no acute distress, well developed, alert, awake and Physically active Orientation/consciousness: patient oriented x3 [facility] Head: Yes normal to inspection, Yes No palpable skull fracture present, Yes normocephalic and Yes atraumatic Ears: hearing grossly normal bilaterally, external ears normal, TM's normal bilaterally, TM normal on the right, TM normal on the left, EAC's normal, mastoids normal and no periauricular adenopathy Eyes General: appearance normal, both eyes and all related structures Neck Neck: Yes normal visual inspection, Yes full ROM, Yes no lymphadenopathy, Yes no meningeal signs, Yes trachea midline, Yes supple, No anterior neck swelling and Yes tender (mild posterior cervical tenderness on palpation. ) Chest Chest palpation & inspection: normal inspection of the chest and normal palpation of entire chest wall Resp Effort & Inspection: normal respiratory effort and able to speak in complete sentences Auscultation: clear to auscultation bilaterally Cardio Jugular venous distension: no JVD Heart sounds: S1 normal heart sound present and S2 normal heart sound present GI Inspection: Yes normal to inspection Palpation (GI): Soft to palpation, not firm, nontender, no guarding and not rigid General: No CVA tenderness and Yes no CVA tenderness Back/Spine/Pelvis Back: no CVA tenderness, No CVA tenderness and No back tenderness Skin General skin exam: no rashes or lesions noted, elasticity normal and turgor normal Neuro General: patient oriented x3, gait normal, tone normal, moves all extremities, Normal light touch and pain sensation, no meningeal signs, no focal motor deficits, CN's II-XI intact bilaterally and normal sensation to monofilament Extrem General: Yes normal to inspection, Yes full ROM and Yes capillary refill normal Psych Appearance: grossly normal, well kempt and not disheveled Medical Decision Making Medical Decision Making [facility] Narrative: 34-year-old male presents to ED for neck pain after hitting head on bottom of the sink while doing furniture work. Patient states was low impact. Presently NIH score is 0. Negative for signs of head trauma. Not suspect any stroke, skull fracture, brain bleed. Cervical spine x-ray negative for any fracture, dislocations, arthritis. Not suspecting any electrolyte deficiencies. Not suspecting posterior stroke. Patient informed to follow up with primary care provider. Patient explained worrisome signs and informed to return to the ED immediately. Not suspecting meningitis, cauda equinus syndrome, or epidural abscess. Not suspecting osteomyelitis. Differential Diagnosis Differential Diagnoses: The differential diagnosis associated with the presentation includes (Cervical spine fracture, sprain) Admission/Observation Consideration of admission/observation: Escalation of care including admission/observation considered Independent Interpretation I performed an independent interpretation of an: Plain X-Ray Radiology Impression Discussion of test interpretation with radiology: I have reviewed the radiologist's reading. Independent Historian Clinical information obtained from an independent historian. History obtained from or confirmed by: Other (Patient) External Record Review External record reviewed: Other (prior visits) Prescription Management I considered prescription management with: Pain Medication Discharge Plan Discharge Clinical Impression: Strain of neck muscle Patient Disposition: Home, Self-Care Instructions: Cervical Strain (ED), Cervical Sprain (ED) Additional Instructions: Return to the ED immediately for any nausea, vomiting, severe headache, neck pain, tingling extremities, paralysis of extremities, loss of vision, facial droop, chest pain, shortness of breath, or any other concerning symptoms. Recommend follow up with primary care provider. Prescriptions: New naproxen 500 mg tablet 500 mg PO BID PRN (Reason: pain) 7 Days Qty: 14 0RF No Action prednisone 20 mg tablet 60 mg PO DAILY 3 Days Qty: 9 0RF amoxicillin 500 mg capsule 500 mg PO Q8H 10 Days Qty: 30 0RF ibuprofen 800 mg tablet 800 mg PO Q8H PRN (Reason: pain) Qty: 10 0RF Rx Instructions: PRN erythromycin 5 mg/gram (0.5 %) ointment 1 appl ophthalmic-Left Q6H 7 Days Qty: 1 0RF Rx Instructions: Please label in Prydeinig for the left eye erythromycin 5 mg/gram (0.5 %) ointment 1 appl ophthalmic-Right Q6H Qty: 1 0RF Rx Instructions: Please label in Prydeinig for the right eye Triple Antibiotic 3.5mg-400 unit- 5,000 unit/gram ointment 1 appl topical BID 7 Days Qty: 28 0RF Stand Alone Forms: Work/School Release Interventions: ED Discharge Assessment Last Done: 09/01/24 14:21 Discharge Date/Time: 09/01/24 14:21 Print Language: Prydeinig
[2024-09-01 14:21] VITALS: BP 135/89; PULSE 76; RESP 16; TEMP 36.6; O2SAT 95
== END 2024-09-01 14:21 | disposition home or self-care (01) ==
PROVIDERS: Emergency Provider Emergency Medicine; PCP Internal Medicine Geriatric Medicine
DX: S16.1XXA Strain of muscle, fascia and tendon at neck level, initial encounter (principal); M54.2 Cervicalgia; Y29.XXXA Contact with blunt object, undetermined intent, initial encounter; Y93.89 Activity, other specified; Y92.89 Other specified places as the place of occurrence of the external cause; Y99.8 Other external cause status
CPT/HCPCS: 72040; 99283

== ENCOUNTER 2025-02-09 20:24 | Emergency (ER) | payer OTHER, SELFPAY ==
--- NOTE | ~2025-02-09 | US_ITS ---
CLINICAL HISTORY: swelling, pain Venous duplex ultrasound right lower extremity Comparison: None Findings: The visualized deep veins are fully compressible with normal Doppler color flow and spectral tracings. No popliteal cyst. IMPRESSION: 1. Negative for right lower extremity deep vein thrombosis. This document has been electronically signed by: Ramin Martinez MD on 02/09/2025 21:53:53
--- NOTE | ~2025-02-09 | XR_ITS ---
CLINICAL HISTORY: effusion, pain 4 view right knee Comparison: None Findings: Bones intact. No dislocations. No significant joint effusion visualized. No radiopaque foreign body. IMPRESSION: 1. No acute fracture or dislocation injury identified at the right knee. This document has been electronically signed by: Antione Elizabeth MD on 02/10/2025 01:40:30
[2025-02-09 20:30] VITALS: BP 120/75; PULSE 78; RESP 16; TEMP 36.2; O2SAT 98; BMI 26.7
--- NOTE | 2025-02-09 20:30 | ED.GENADULT ---
HPI - General Adult General Chief complaint: Extremity Injury, Lower Stated complaint: right leg swollen from knee down Time Seen by Provider: 02/09/25 23:25 Source: patient Mode of arrival: ambulatory Limitations: no limitations History of Present Illness ED Provider: HPI narrative: Patient complaining of right knee swelling for last 3 days atraumatic painful to ambulate no prior history of arthritis no other joint involvement Related Data Previous Rx's ?Medication ?Instructions ?Recorded amoxicillin 500 mg capsule 500 mg PO Q8H 10 days #30 caps 07/11/20 ibuprofen 800 mg tablet 800 mg PO Q8H PRN pain #10 tabs 07/11/20 prednisone 20 mg tablet 60 mg (3 x 20 mg) PO DAILY 3 days 07/11/20 #9 tabs erythromycin 5 mg/gram (0.5 %) eye 1 appl ophthalmic-Left Q6H 7 days 11/16/20 ointment #1 g erythromycin 5 mg/gram (0.5 %) eye 1 appl ophthalmic-Right Q6H #1 g 11/16/20 ointment neomycin-bacitracn Zn-polymyx 3.5 1 appl topical BID 7 days #28 grams 06/15/22 mg-400 unit-5,000 unit/gram top oint (Triple Antibiotic) naproxen 500 mg tablet 500 mg PO BID PRN pain 7 days #14 09/01/24 tabs ibuprofen 600 mg tablet 600 mg PO Q6H PRN fever or pain 02/10/25 #30 tabs Allergies Allergy/AdvReac Type Severity Reaction Status Date / Time No Known Allergies Allergy Verified 02/09/25 20:33 [No Known Allergies*] Review of Systems Review of Systems: Yes all other systems are reviewed and are negative PMFSH Past Medical History Medical History No known health problems Social History Social History Use of substances other than those prescribed or required for medical reasons: No Advance Directives: No Advance Directives Information Provided: No Do you have a plan to hurt others: No Plan Physical Exam ED Vital Signs: Vital Signs - 24 hr 02/09/25 20:30 02/10/25 00:23 02/10/25 00:24 Temperature 97.2 F 97.9 F 97.9 F Pulse Rate 78 70 70 Respiratory Rate 16 16 16 Blood Pressure 120/75 126/79 126/79 Pulse Oximetry 98 98 98 Oxygen Delivery Method Room Air Room Air Room Air BMI result Body Mass Index 26.7 Appearance: Alert. Oriented X3. No acute distress. Eyes: PERRLA, No Nystagmus ENT: Pharynx normal. Oral Mucosa moist Neck: Normal inspection. Neck supple. CVS: Normal heart rate and rhythm. Pulses normal. Respiratory: No respiratory distress. Equal air entry bilateral, no wheezing/rales/rhonchi Abdomen: Soft and nontender. Bowel sounds are present, Skin: Skin warm and dry. Normal skin color. Normal skin turgor. Extremities: No lower extremity edema. No calf tenderness right knee with lateral joint line tenderness Caridad sign and drawer sign negative moderate knee effusion Neuro: Oriented X 3. No motor deficit. Course Course Course Narrative: RME performed by Vinita Valladares PA-C. Patient is a 34 year old assigned male at presenting to the emergency department with right lower leg swelling. Detailed physical exam and review of systems are deferred to the hard rock miner. Imaging ordered. Patient placed back in the waiting room pending room availability and results. Medications Administered Discontinued Medications Generic Name Dose Route Start Last Admin Trade Name Freq PRN Reason Stop Dose Admin Ibuprofen 600 mg 02/09/25 23:32 02/10/25 00:20 Ibuprofen 600 Mg Tablet PO 02/09/25 23:33 600 mg ONCE ONE Administration Medical Decision Making Medical Decision Making [facility] Narrative: Patient with right knee internal injury x-ray negative for acute DVT negative discharge patient home on analgesic and Allen wrap Radiology Impression Discussion of test interpretation with radiology: I have reviewed the radiologist's reading. Discharge Plan Discharge Clinical Impression: Acute internal derangement of knee Patient Disposition: Home, Self-Care Instructions: Knee Pain (ED) Additional Instructions: Likely you have cartilage damage your right knee Rest to your right knee Allen wrap as provided Ibuprofen for pain Follow with your PCP if not better Prescriptions: New ibuprofen 600 mg tablet 600 mg PO Q6H PRN (Reason: fever or pain) Qty: 30 0RF No Action prednisone 20 mg tablet 60 mg PO DAILY 3 Days Qty: 9 0RF amoxicillin 500 mg capsule 500 mg PO Q8H 10 Days Qty: 30 0RF ibuprofen 800 mg tablet 800 mg PO Q8H PRN (Reason: pain) Qty: 10 0RF Rx Instructions: PRN erythromycin 5 mg/gram (0.5 %) ointment 1 appl ophthalmic-Left Q6H 7 Days Qty: 1 0RF Rx Instructions: Please label in [place] for the left eye erythromycin 5 mg/gram (0.5 %) ointment 1 appl ophthalmic-Right Q6H Qty: 1 0RF Rx Instructions: Please label in [place] for the right eye Triple Antibiotic 3.5mg-400 unit- 5,000 unit/gram ointment 1 appl topical BID 7 Days Qty: 28 0RF naproxen 500 mg tablet 500 mg PO BID PRN (Reason: pain) 7 Days Qty: 14 0RF Stand Alone Forms: Work/School Release Interventions: ED Discharge Assessment Last Done: 02/10/25 00:24 Discharge Date/Time: 02/10/25 00:24 Print Language: Tanzanian
[2025-02-10] MEDS: Ibuprofen 600 MG TABLET PO (00:20)
[2025-02-10 00:23] VITALS: BP 126/79; PULSE 70; RESP 16; TEMP 36.6; O2SAT 98
[2025-02-10 00:24] VITALS: BP 126/79; PULSE 70; RESP 16; TEMP 36.6; O2SAT 98
== END 2025-02-10 00:24 | disposition home or self-care (01) ==
PROVIDERS: Emergency Provider Internal Medicine
DX: M23.91 Unspecified internal derangement of right knee (principal); R60.0 Localized edema; M25.561 Pain in right knee
CPT/HCPCS: 73564; 93971; 99284

== ENCOUNTER → 2025-02-09 20:32 | Outpatient (BNV) | payer OTHER, SELFPAY | PROVIDERS: Visit Provider Radiology Diagnostic Radiology | DX: M79.604 Pain in right leg (principal) | CPT/HCPCS: 73564; 93971 ==

== ENCOUNTER → 2025-03-28 00:38 | Outpatient (BNV) | payer OTHER, SELFPAY | PROVIDERS: Emergency Provider Emergency Medicine; PCP Internal Medicine Geriatric Medicine; Visit Provider Radiology Diagnostic Radiology | DX: R91.8 Other nonspecific abnormal finding of lung field (principal); K59.00 Constipation, unspecified | CPT/HCPCS: 71046; 74018 ==

== ENCOUNTER 2025-03-28 01:14 | Emergency (ER) | payer OTHER, SELFPAY ==
--- NOTE | ~2025-03-28 | XR_ITS ---
CLINICAL HISTORY: L lateral pain, recent URI, ?PNA CHEST X-RAY FRONTAL AND LATERAL VIEWS COMPARISON: None provided. FINDINGS: Frontal and lateral views of the chest were performed. Patient is rotated to the right. Borderline heart size is noted. On the frontal view, a right perihilar infiltrate is present. Left lung is unremarkable. No pleural effusion or pneumothorax. IMPRESSION: 1. A right perihilar infiltrate is present. Follow-up to confirm resolution is advised. This document has been electronically signed by: Salú Chowdhury M.D. on 03/28/2025 05:04:14
--- NOTE | ~2025-03-28 | XR_ITS ---
CLINICAL HISTORY: constipation ABDOMINAL X-RAY FRONTAL VIEW COMPARISON: 11/02/2023. FINDINGS: Single frontal view of the abdomen was performed. There is gas scattered within bowel, without evidence of a bowel obstruction or free air. There is a small amount of stool within the ascending colon. The osseous structures are unremarkable. IMPRESSION: 1. No acute disease in the abdomen. This document has been electronically signed by: Saúl Chowdhury M.D. on 03/28/2025 04:57:14
[2025-03-28 01:17] VITALS: BP 129/86; PULSE 70; RESP 16; TEMP 36.2; O2SAT 100; BMI 26.7
[2025-03-28 02:01] LABS: Basophils Percent Auto 0.4 % (0-2); Eosinophils Absolute Auto 0.2 X10*3/uL (0.0-0.4); Eosinophils Percent Auto 1.8 % (0-4); Hematocrit 36.3 % (42.0-52.0); Hemoglobin 12.8 g/dl (14.0-18.0); Imm Gran Abs Auto 0.02 X10*3/uL (0.00-0.03); Imm Gran Pct Auto 0.2 % (0.0-0.4); Lymphocytes Absolute Auto 2.3 X10*3/uL (1.2-4.9); Lymphocytes Percent Auto 27.5 % (20-40); MANUAL DIFF FLAG NO; Mean Corpuscular HGB Conc 35.3 g/dl (31.0-36.0); Mean Corpuscular Hemoglobin 29.7 pg (27.0-33.0); Mean Corpuscular Volume 84.2 fL (80.0-98.0); Mean Platelet Volume 9.4 fL (9.4-12.4); Monocytes Absolute Auto 0.6 X10*3/uL (0.1-1.2); Monocytes Percent Auto 6.7 % (2-11); Neutrophils Absolute Auto 5.3 x10*3/uL (2.0-8.3); Neutrophils Percent Auto 63.4 % (45-73); Platelet Count 303 X10*3/uL (160-400); Red Blood Count 4.31 X10*6/uL (4.60-5.80); Red Cell Distribution Width 12.2 % (11.0-16.0); White Blood Count 8.4 X10*3/uL (4.8-10.8)
--- OUTSIDE RECORDS SUMMARY | 2025-03-28 02:09 | XMS_ITS | Encounter Summary ---
Author Organization [employer] Address [address] [place] [address] Care Team Providers Care Beet Topper Name Role Phone Name, Devonte COLON Primary Care Provider [phone] Encounter Details Date Type Department Care Team ([facility] st Contact Info) Description 09/12/2023 Orders Only [facility] [address] [place], [place] [id number] Marilyn Carvalho LPN Social History Tobacco Use Types Packs/Day Years Used Date Smoking Tobacco: Every Day Cigarettes Passive Smoke Exposure: Current Smokeless Tobacco: Never Housing Stability Answer Date Recorded What is your housing situation today? I have kenisha kaba 07/18/[address] you li ve. Do you have problems with any of the following? None of the above 07/18/2023 Food Insecurity Answer Date Recorded Within the past 12 months, y ou worried that your food would run out before you got money to buy more: Never True 07/18/2023 Within the past 12 months,th e food you bought just didn't last and you didn't have enough money to get more: Never True Transportation Answer Date Recorded In the past 12 months, has l ack of transportation kept you from medical appts, meetings, work or from getting things needed for daily living? Yes, it has kept me from medical appointments or getting medications. 07/13/2023 Utilities Answer Date Recorded In the past 12 months, has t he electric, gas, oil or water company threatened to shut off services in your home? No 07/18/2023 Sex and Gender Information Value Date Recorded Sex Assigned at Male 08/01/2022 10:31 AM EDT Legal Sex Male 10:31 AM EDT Gender Identity Male 08/01/2022 10:31 AM EDT Sexual Orientation Straight 08/01/2022 10 :31 AM EDT documented as of this encounter Plan of Treatment Upcoming Encounters Date Type Department Care Team (Late st Contact Info) Description 04/08/2025 2:00 PM EDT Office Visit [facility] [address] [place] [address] Name, MD Devonte [address] [place] [id number] documented as of this encounter Visit Diagnoses Not on filedocumented in this encounter Care Teams Beet Topper Relationship Specialty Start Date End Date Name, MD Devonte [address] [place] [id number] PCP - General Family Medicine 05/03/17 documented as of this encounter
--- NOTE | 2025-03-28 02:12 | ED_ITS ---
HPI - General Adult General Chief complaint: Abdominal Pain Stated complaint: abd pain Time Seen by Provider: 03/28/25 01:43 Source: patient Mode of arrival: ambulatory Limitations: language barrier ([place]izen [place]-speaking foreign language interpreter utilized) History of Present Illness ED Provider: Lisa Pineda NP HPI narrative: Patient is a 35-year-old male who presents emergency department for evaluation. Over the past few days he has been experiencing left lateral abdominal/flank pain. Constant in nature exacerbates it with movement as well as deep respiration. Two weeks ago he admits to having what he thought was a virus, rhinitis, cough, body aches symptoms have resolved. He has no associated nausea or vomiting. States that recently he has had less frequent bowel movements but had a normal movement prior to arrival, no recent diarrhea no hematochezia or melena. He denies dysuria, hematuria but does admit to urinary urgency. No history of nephrolithiasis. Pain does not radiate into the anterior abdomen, no groin pain. No testicular pain or swelling. Denies concern for STI. he additionally reports that he has been experiencing pain and swelling to his right knee. Initial nursing triage states that this has been for 1 week however he was seen in the emergency department similarly 1 month ago. Had negative x- ray imaging at that time. Has trialed NSAID. States pain/swelling have been the same, no improvement but also not worsened. No redness. Atraumatic. Did not follow up with his primary care doctor as advised, has continued to walk and work on the knee. No numbness or Tingling to the extremity. Related Data Previous Rx's ?Medication ?Instructions ?Recorded amoxicillin 500 mg capsule 500 mg PO Q8H 10 days #30 c aps 07/11/20 ibuprofen 800 mg tablet 800 mg PO Q8H PRN pain #10 t abs 07/11/20 prednisone 20 mg tablet 60 mg (3 x 20 mg) PO DAILY 3 days 07/11/20 #9 tabs erythromycin 5 mg/gram (0.5 %) eye 1 appl ophthalmic-L eft Q6H 7 days 11/16/20 ointment #1 g erythromycin 5 mg/gram (0.5 %) eye 1 appl ophthalmic-R ight Q6H #1 g 11/16/20 ointment neomycin-bacitracn Zn-polymyx 3.5 1 appl topical BID 7 days #28 grams 06/15/22 mg-400 unit-5,000 unit/gram top oint (Triple Antibiotic) naproxen 500 mg tablet 500 mg PO BID PRN pain 7 day s #14 09/01/24 tabs ibuprofen 600 mg tablet 600 mg PO Q6H PRN fever or p ain 02/10/25 #30 tabs amoxicillin 500 mg tablet 1,000 mg (2 x 500 mg) PO TID 5 03/28/25 days #30 tabs azithromycin 250 mg tablet 250 mg PO DAILY 4 days #4 t abs 03/28/25 lidocaine 5 % topical patch 1 patch topical DAILY #15 ea 03/28/25 (Lidoderm) Allergies Allergy/AdvReac Type Severity Reaction Status Date / Time No Known Allergies (No Known Allergy Verified 03/28/25 01:27 Allergies*) Review of Systems 2 Review of Systems: Yes all other systems are reviewed and are negative [facility] Past Medical History Attestation statement: The following information was validated with the patient. Source: old records reviewed Medical History No known health problems Social History Social History Smoked in Last 30 Days: No Use of substances other than those prescribed or required for medical reasons: No Advance Directives: No Do you have a plan to hurt others: No Plan Physical Exam ED Vital Signs: Vital Signs - 24 hr 03/28/25 01:17 03/28/25 02:58 Temperature 97.1 F 97.6 F Pulse Rate 70 62 Respiratory Rate 16 16 Blood Pressure 129/86 110/64 Pulse Oximetry 100 98 Oxygen Delivery Method Room Air Room Air BMI result Body Mass Index 26.7 Appearance: Alert.?Oriented to person, place and time. No acute distress.?Normal affect. Eyes: Pupils equal, round and reactive to light.? ENT: Pharynx normal.?? Neck: Normal inspection.? Neck supple.?? CVS: Heart sounds normal. Normal heart rate and rhythm.? Pulses normal.?? Respiratory: No respiratory distress.? Lung sounds clear to auscultation bilaterally?? Abdomen: Soft without anterior abdominal tenderness. Along the lateral aspect does have tenderness mid abdomen, no overt CVA tenderness. Normoactive bowel sounds. Skin: Skin warm and dry.? Normal skin color.? Normal skin turgor.?? Extremities: Localized edema to the right knee no obvious deformity, diffuse tenderness upon palpation. No laxity. Anterior and posterior drawer test negative. Valgus and varus stress test negative. No rashes or lesions. No posterior swelling. No calf ttp?2+ DP/PT pulse Neuro: Moves all extremities spontaneously. Sensation intact bilaterally. Ambulates with normal steady gait. Course Reevaluation(s) Reevaluation #1: Improvement in pain after receiving Toradol. On review of KUB does not appear to have significant bowel burden in the descending colon, I do not suspect bowel obstruction is had a normal bowel previously. Urinalysis is without evidence of infection or microscopic hematuria without bell CVA tenderness I have a lower suspicion for nephrolithiasis as etiology for pain. Chest x-ray on my impression appears to have pneumonia on the right, does not correlate with pain on the left side however. Given recent URI symptoms, will send course of antibiotics to pharmacy. Reviewed with patient potential musculoskeletal in nature discussed conservative treatment, outpatient follow-up with primary care provider in worrisome signs and symptoms that would warrant re-evaluation emergency department Medications Administered Discontinued Medications Generic Name Dose Route Start Last Admin Trade Name Freq PRN Reason Stop Dose Admin Azithromycin 500 mg 03/28/25 06:35 03/28/25 06:43 Azithromycin 500 Mg Tablet PO 03/28/25 06:36 500 mg ONCE ONE Administration Ketorolac Tromethamine 15 mg 03/28/25 02:14 03/28/25 02:54 Ketorolac Tromethamine 15 Mg/Ml Vial IM 03/28/25 02:15 15 mg ONCE ONE Administration Medical Decision Making Medical Decision Making [facility] Narrative: Patient is a 35-year-old male who presents emergency department for evaluation. He has been experiencing left lateral abdominal/flank pain over the past 2 days, he has some mild tenderness laterally though no overt CVA tenderness, increases with inspiration no tear abdominal pain. Admitting to associated urinary frequency. Differential including pneumonia given recent URI will obtain CXR to evaluate for consolidation/infiltrate, prior to my assumption of care KUB was obtained, endorses less frequent bowel movements but had a normal bowel movement prior to arrival, may possibly have some degree of constipation but he is tolerating oral intake no nausea or vomiting no hematochezia or melena, I have low suspicion for bowel obstruction, colitis, diverticulitis. Given his associated urinary urgency may potentially be renal colic, nephrolithiasis, obstructive calculi, pyelonephritis pending urinalysis at this time. Regarding his right knee, this is ongoing in nature, has not had any appropriate follow-up, no erythema or warmth no fevers or chills to suggest septic joint, there was no obvious deformity, ambulatory with a steady gait. Advised outpatient follow-up with PCP and/or Orthopedics they may consider a course of physical therapy or advanced imaging. He denies concern for sexually transmitted infections. Advised continued conservative treatment until further evaluation. Patient's x-ray showed possible infiltrates on the right. However, patient has pain on the left. Patient states that about a week ago he did have URI symptoms but they self-resolved. Patient will be started on p.o. antibiotics. Patient's left-sided flank pain likely musculoskeletal. Differential Diagnosis Differential Diagnoses: The differential diagnosis associated with the presentation includes (See narrative above) Admission/Observation Consideration of admission/observation: Escalation of care including admission/observation considered Lab Data MDM Lab Attestation statement: I reviewed the patient's lab results. CBC is without leukocytosis, has a mild normocytic anemia that does not meet transfusion criteria, no thrombocytopenia. No electrolyte derangement. No ARABELLA. LFTs overall unremarkable minimal elevation and T bili 1.3 ALT 53 as seen on prior, normal lipase. Urinalysis without evidence of infection or microscopic hematuria 03/28/25 01:55 03/28/25 01:55 Labs: Lab Results 03/28/25 03/28/25 Range/Units 01:55 02:31 WBC 8.4 (4.8-10.8) X10*3/uL RBC 4.31 L (4.60-5.80) X10*6/uL Hgb 12.8 L (14.0-18.0) g/dl Hct 36.3 L (42.0-52.0) % MCV 84.2 (80.0-98.0) fL MCH 29.7 (27.0-33.0) pg MCHC 35.3 (31.0-36.0) g/dl RDW 12.2 (11.0-16.0) % Plt Count 303 (160-400) X10*3/uL MPV 9.4 (9.4-12.4) fL Immature Gran % (Auto) 0.2 (0.0-0.4) % Neut % (Auto) 63.4 (45-73) % Lymph % (Auto) 27.5 (20-40) % [place] % (Auto) 6.7 (2-11) % Eos % (Auto) 1.8 (0-4) % Baso % (Auto) 0.4 (0-2) % Lymph # (Auto) 2.3 (1.2-4.9) X10*3/uL [place] # (Auto) 0.6 (0.1-1.2) X10*3/uL Eos # (Auto) 0.2 (0.0-0.4) X10*3/uL Baso # (Auto) 0.0 (0.0-0.2) X10*3/uL Abs Immat Gran (auto) 0.02 (0.00-0.03) X10*3/uL Absolute Neuts (auto) 5.3 (2.0-8.3) x10*3/uL Absolute Nucleated RBC 0.000 (0.0-0.012) X10*3/uL Nucleated RBC % (auto) 0.0 (0.0-0.2) /100WBC Sodium 137 (135-145) mmol/L Potassium 4.0 (3.3-5.1) mmol/L Chloride 107 (96-108) mmol/L Carbon Dioxide 22 (22-29) mmol/L Anion Gap 12 (12-20) BUN 15 (9-16) mg/dL Creatinine 0.63 (0.5-1.4) mg/dL Estim Creat Clear Calc 172.2 Estimated GFR > 60 Random Glucose 98 (60-115) mg/dL Calcium 9.3 (8.4-10.2) mg/dL Magnesium 2.0 (1.6-2.6) mg/dL Total Bilirubin 1.3 H (0.0-1.0) mg/dL AST 29 (5-37) U/L ALT 53 H (0-40) U/L Alkaline Phosphatase 80 (39-117) U/L Total Protein 7.6 (6.5-8.0) g/dL Albumin 4.2 (3.5-5.0) g/dL Lipase 20 (8-78) U/L Urine Color Yellow Urine Appearance Clear Urine pH 5.5 (5.0-9.0) Ur Specific [place] >= 1.030 H (1.005-1.025) Urine Protein Negative (Neg-Trace) mg/dL Urine Glucose (UA) Negative (Negative) mg/dL Urine Ketones Negative (Negative) mg/dL Urine Blood Negative (Negative) Urine Nitrite Negative (Negative) Ur Leukocyte Esterase Negative (Negative) Independent Interpretation I performed an independent interpretation of an: Plain X-Ray Radiology Impression Discussion of test interpretation with radiology: I have reviewed the radiologist's reading. Radiologist Impression: CHEST X-RAY FRONTAL AND LATERAL VIEWS COMPARISON: None provided. FINDINGS: Frontal and lateral views of the chest were performed. Patient is rotated to the right. Borderline heart size is noted. On the frontal view, a right perihilar infiltrate is present. Left lung is unremarkable. No pleural effusion or pneumothorax. IMPRESSION: 1. A right perihilar infiltrate is present. Follow-up to confirm resolution is advised. External Record Review External record reviewed: Outpatient record Prescription Management I considered prescription management with: Pain Medication Discharge Plan Discharge Clinical Impression: Acute flank pain, Internal derangement of knee, acute, Pneumonia Patient Disposition: Home, Self-Care Instructions: P.R.I.C.E. Treatment (ED), Pneumonia (ED) Additional Instructions: Blood work today was overall very reassuring. Urine test does not show evidence of infection or blood in the urine. Chest x-ray is concerning for pneumonia, prescription for antibiotics has been sent to your pharmacy. Please complete the entire course not skip any doses or stopped taking early. You can take ibuprofen 200 mg, 3 tablets (600mg) every 6-8 hours as needed for pain, in addition to Tylenol 500 mg, 2 tablets (1,000mg) every 4-6 hours as needed for pain, but not to exceed 3 doses daily (3,000mg).? Apply Lidoderm patch to area of pain leave on for 12 hours and remove for 12 hour period to prevent skin irritation. Protect your primary care provider to arrange for follow-up visit notable only for the pain under signed but as well as her ongoing right knee pain. You may return back to emergency department any new or worsening symptoms or concerns. Prescriptions: New amoxicillin 500 mg tablet 1,000 mg PO TID 5 Days Qty: 30 0RF lidocaine [Lidoderm] 5 % adhesive patch,medicated 1 patch topical DAILY Qty: 15 0RF Rx Instructions: leave on most painful area for up to 12 hrs azithromycin 250 mg tablet 250 mg PO DAILY 4 Days Qty: 4 0RF Rx Instructions: start on day 2 of therapy No Action prednisone 20 mg tablet 60 mg PO DAILY 3 Days Qty: 9 0RF amoxicillin 500 mg capsule 500 mg PO Q8H 10 Days Qty: 30 0RF ibuprofen 800 mg tablet 800 mg PO Q8H PRN (Reason: pain) Qty: 10 0RF Rx Instructions: PRN erythromycin 5 mg/gram (0.5 %) ointment 1 appl ophthalmic-Left Q6H 7 Days Qty: 1 0RF Rx Instructions: Please label in [place] for the left eye erythromycin 5 mg/gram (0.5 %) ointment 1 appl ophthalmic-Right Q6H Qty: 1 0RF Rx Instructions: Please label in [place] for the right eye Triple Antibiotic 3.5mg-400 unit- 5,000 unit/gram ointment 1 appl topical BID 7 Days Qty: 28 0RF ibuprofen 600 mg tablet 600 mg PO Q6H PRN (Reason: fever or pain) Qty: 30 0RF naproxen 500 mg tablet 500 mg PO BID PRN (Reason: pain) 7 Days Qty: 14 0RF Referrals: Name,MD Devonte [Primary Care Provider, Internal Medicine] Stand Alone Forms: Work/School Release Interventions: ED Discharge Assessment Last Done: 03/28/25 06:44 Discharge Date/Time: 03/28/25 06:46 Print Language: [place]
[2025-03-28 02:19] LABS: Alanine Aminotransferase 53 U/L (0-40); Albumin Level 4.2 g/dL (3.5-5.0); Alkaline Phosphatase 80 U/L (39-117); Anion Gap 12 (12-20); Aspartate Amino Transferase 29 U/L (5-37); Bilirubin Total 1.3 mg/dL (0.0-1.0); Blood Urea Nitrogen 15 mg/dL (9-16); Calcium 9.3 mg/dL (8.4-10.2); Carbon Dioxide 22 mmol/L (22-29); Chloride 107 mmol/L (96-108); Creatinine Clr Calc Pharmacy 172.2; Estimated Glomerular Filt Rate > 60; Glucose Random 98 mg/dL (60-115); Lipase 20 U/L (8-78); Sodium 137 mmol/L (135-145); Total Protein 7.6 g/dL (6.5-8.0)
[2025-03-28 02:39] LABS: Appearance Urine Clear; Color Urine Yellow; Glucose Urine UA Negative (Negative); Leukocyte Esterase Urine Negative (Negative); Nitrite Urine Negative (Negative); PH 5.5 (5.0-9.0); Specific Gravity - Urine >= 1.030 (1.005-1.025); Urine Blood Negative (Negative); Urine Ketones Negative (Negative); Urine Protein Negative (Neg-Trace)
[2025-03-28] MEDS: Ketorolac Tromethamine 15 MG/ML VIAL IM (02:54)
[2025-03-28 02:58] VITALS: BP 110/64; PULSE 62; RESP 16; TEMP 36.4; O2SAT 98
[2025-03-28] MEDS: Azithromycin 500 MG TABLET PO (06:43)
[2025-03-28 06:44] VITALS: BP 135/85; PULSE 76; RESP 16; TEMP 36.7; O2SAT 96
== END 2025-03-28 06:46 | disposition home or self-care (01) ==
PROVIDERS: Emergency Provider Emergency Medicine; PCP Internal Medicine Geriatric Medicine
DX: J18.9 Pneumonia, unspecified organism (principal); M23.91 Unspecified internal derangement of right knee; R10.9 Unspecified abdominal pain; K59.00 Constipation, unspecified
CPT/HCPCS: 36415; 71046; 74018; 80053; 81003; 83690; 83735; 85025; 96372; 99284; J1885

== ENCOUNTER 2025-05-22 14:47 | Outpatient (REF) | payer OTHER, SELFPAY ==
--- NOTE | ~2025-05-22 | XR_ITS ---
EXAMINATION: XR CHEST CLINICAL INFORMATION: hx of pneumonia COMPARISON: March 28, 2025 TECHNIQUE: 2 views of the chest were obtained. FINDINGS: No significant abnormality is noted involving the heart, lungs, mediastinum, bony thorax or soft tissues. XR/XR chest 2V IMPRESSION: Interval resolution of right upper lobe pneumonia. Electronically signed by: Raghu Lizama MD 05/22/2025 03:22 PM EDT RP
--- NOTE | ~2025-05-22 | XR_ITS ---
EXAMINATION: XR KNEE, RIGHT CLINICAL INFORMATION: Months for right knee pain and swelling COMPARISON: February 09, 2025 TECHNIQUE: Four views of the right knee. FINDINGS: Joint spaces are maintained. There are no osteophytes. There is a joint effusion, new since the prior. There is no soft tissue calcification. XR/XR knee RT 3V IMPRESSION: Joint effusion Electronically signed by: Raghu Lizama MD 05/22/2025 03:23 PM EDT
[2025-05-23 08:08] LABS: ~HepC Num1 0.12 S/CO (0.00-0.79); ~Hepatitis C Antibody Nonreactive (Nonreactive)
[2025-05-23 09:49] LABS: Lyme Abs Screen <0.90 index
== END 2025-05-22 14:48 | disposition home or self-care (01) ==
LOC: HO.HHCL 14:47
PROVIDERS: PCP Internal Medicine Geriatric Medicine; Visit Provider Internal Medicine Geriatric Medicine
DX: R93.89 Abnormal findings on diagnostic imaging of other specified body structures (principal); M25.561 Pain in right knee; G89.29 Other chronic pain; Z87.01 Personal history of pneumonia (recurrent); Z11.59 Encounter for screening for other viral diseases; R39.89 Other symptoms and signs involving the genitourinary system; Z01.84 Encounter for antibody response examination
CPT/HCPCS: 36415; 71046; 73562; 86617; 86618; 86803

== ENCOUNTER → 2025-05-22 14:59 | Outpatient (BNV) | payer OTHER, SELFPAY | PROVIDERS: PCP Internal Medicine Geriatric Medicine; Visit Provider Radiology Diagnostic Radiology | DX: Z87.01 Personal history of pneumonia (recurrent) (principal); M25.461 Effusion, right knee | CPT/HCPCS: 71046; 73562 ==

== ENCOUNTER 2025-09-06 11:57 | Emergency (ER) | payer OTHER, SELFPAY ==
--- NOTE | ~2025-09-06 | CT_ITS ---
CLINICAL HISTORY: LLQ abd pain, N D CT abdomen and pelvis with contrast Comparison: None provided Findings: LIMITED CHEST: Lung bases are clear. LIVER: No focal liver lesion. BILIARY: No gallbladder wall thickening, radiopaque stone, or ductal dilatation. PANCREAS: No mass or ductal dilatation. SPLEEN: No splenomegaly. KIDNEYS: No hydronephrosis or radiopaque stone. ADRENALS: No nodule. VASCULAR: No aneurysm. RETROPERITONEUM: No lymphadenopathy or mass. BOWEL/MESENTERY: No evidence of obstruction. No free fluid or air. Normal appendix. Colonic diverticulosis. ABDOMINAL WALL: No mass or significant abnormality. URINARY BLADDER: No focal wall thickening. PELVIC NODES: No pelvic lymphadenopathy. PELVIC ORGANS: Normal for age. BONES: No acute fracture. OTHER: Negative. IMPRESSION: No acute abnormality. No radiopaque nephrolithiasis or hydronephrosis. Colonic diverticulosis without CT evidence of acute diverticulitis. This document has been electronically signed by: Jacque Mccormack MD on 09/06/2025 18:29:36
[2025-09-06 12:04] VITALS: BP 113/77; PULSE 90; RESP 18; TEMP 36.5; O2SAT 99; BMI 25.3
--- NOTE | 2025-09-06 12:05 | ED_ITS ---
HPI - General Adult General Chief complaint: General Medical Stated complaint: flu symptons Time Seen by Provider: 09/06/25 15:13 Source: patient, RN notes reviewed and old records reviewed Mode of arrival: ambulatory History of Present Illness ED Provider: Brianda Ye PA-C HPI narrative: 35-year-old Estonian-speaking male with no significant past medical history presenting to the ED complaining of abdominal discomfort, nausea, vomiting, and diarrhea since yesterday. Denies recent travel or suspicious food intake. Denies fever, chills, dysuria/hematuria, melena/bloody stools, urinary symptoms Related Data Previous Rx's ?Medication ?Instructions ?Recorded amoxicillin 500 mg capsule 500 mg PO Q8H 10 days #30 c aps 07/11/20 ibuprofen 800 mg tablet 800 mg PO Q8H PRN pain #10 t abs 07/11/20 prednisone 20 mg tablet 60 mg (3 x 20 mg) PO DAILY 3 days 07/11/20 #9 tabs erythromycin 5 mg/gram (0.5 %) eye 1 appl ophthalmic-L eft Q6H 7 days 11/16/20 ointment #1 g erythromycin 5 mg/gram (0.5 %) eye 1 appl ophthalmic-R ight Q6H #1 g 11/16/20 ointment neomycin-bacitracn Zn-polymyx 3.5 1 appl topical BID 7 days #28 grams 06/15/22 mg-400 unit-5,000 unit/gram top oint (Triple Antibiotic) naproxen 500 mg tablet 500 mg PO BID PRN pain 7 day s #14 09/01/24 tabs ibuprofen 600 mg tablet 600 mg PO Q6H PRN fever or p ain 02/10/25 #30 tabs amoxicillin 500 mg tablet 1,000 mg (2 x 500 mg) PO TID 5 03/28/25 days #30 tabs azithromycin 250 mg tablet 250 mg PO DAILY 4 days #4 t abs 03/28/25 lidocaine 5 % topical patch 1 patch topical DAILY #15 ea 03/28/25 (Lidoderm) Allergies Allergy/AdvReac Type Severity Reaction Status Date / Time No Known Allergies (No Known Allergy Verified 09/06/25 12:05 Allergies*) Review of Systems 2 Review of Systems: Yes all other systems are reviewed and are negative Constitutional: Constitutional: Reports as per [facility] Past Medical History Attestation statement: The following information was validated with the patient. Source: old records reviewed Medical History No known health problems Social History Social History Advance Directives: No Advance Directives Information Provided: No Do you have a plan to hurt others: No Plan Physical Exam ED Vital Signs: Vital Signs - 24 hr 09/06/25 12:04 09/06/25 15:30 09/06/25 18:49 Temperature 97.7 F 97.9 F 98.1 F Pulse Rate 90 88 73 Respiratory Rate 18 19 18 Blood Pressure 113/77 118/76 101/57 L Pulse Oximetry 99 99 99 Oxygen Delivery Method Room Air Room Air Room Air 09/06/25 19:40 Temperature 98.1 F Pulse Rate 73 Respiratory Rate 18 Blood Pressure 101/57 L Pulse Oximetry 99 Oxygen Delivery Method Room Air BMI result Body Mass Index 25.3 Const General: cooperative, healthy appearing and no acute distress Orientation/consciousness: patient oriented x3 Limitations: no limitations HENMT Head: Yes normal to inspection and Yes atraumatic Ears: hearing grossly normal bilaterally General nose exam: Normal external nose present Face and sinus: Yes normal facial exam Eyes General: appearance normal, both eyes and all related structures EOM: EOMs intact bilaterally Neck Neck: Yes normal visual inspection and Yes no meningeal signs Resp Effort & Inspection: normal respiratory effort and no respiratory distress Auscultation: clear to auscultation bilaterally Cardio Rate: regular rate Heart sounds: S1 normal heart sound present and S2 normal heart sound present GI Inspection: Yes normal to inspection Palpation (GI): Soft to palpation, Tenderness to palpation present (GI) in the LLQ and in the LUQ; with no rebound tenderness, no guarding and not rigid General: Yes no CVA tenderness Back/Spine/Pelvis Back: no CVA tenderness Skin Rashes: no rashes Wounds: no wounds Neuro General: patient oriented x3, tone normal and no meningeal signs Cranial nerves: Yes CN's II-XII intact bilaterally Gait exam (Neuro): Normal gait present Extrem General: Yes normal to inspection Course Course Course Narrative: This is a Rapid Medical Examination (RME) performed by Mariana Lucero PA-C in triage. Full HPI, ROS, assessment and treatment plan per primary provider in the Main ED. Hx: 35 yo M here for eval of N/V/D and abd pain x yesterday. Plan: labs, UA, viral swabs -1536--labs notable for elevated total bilirubin to 2.6. ALT chronically elevated -ethanol 12 -the viral testing negative 1853--CT abdomen pelvis w IV con IMPRESSION: No acute abnormality. No radiopaque nephrolithiasis or hydronephrosis. Colonic diverticulosis without CT evidence of acute diverticulitis. -1913--on re-evaluation patient reports symptomatic improvement. Is tolerating p.o. in the ED without difficulty. No right upper quadrant tenderness. > patient will need close outpatient follow up with GI due to elevated bilirubin. Hepatitis panel pending. Results discussed with patient including worrisome signs and symptoms and strict return precautions, and when to return to the emergency department. They verbalized understanding and feel safe for discharge at this time. Medications Administered Discontinued Medications Generic Name Dose Route Start Last Admin Trade Name Freq PRN Reason Stop Dose Admin Sodium Chloride 1,000 mls @ 999 mls/hr 09/06/25 15:45 09/06/25 19:39 Ns IV 09/06/25 16:45 Infused .Q1H1M LAINEY Infusion Iohexol 100 ml 09/06/25 17:32 09/06/25 17:32 Iohexol 350 Mg/Ml 100 Ml Infus..Btl IV 09/06/25 17:33 85 ml ONCE ONE Administration Ondansetron HCl 4 mg 09/06/25 15:32 09/06/25 16:35 Ondansetron Hcl 4 Mg/2 Ml Vial IVPUSH 09/06/25 15:33 4 mg ONCE ONE Administration Medical Decision Making Medical Decision Making MDM Narrative: 35-year-old Estonian-speaking male with no significant past medical history presenting to the ED complaining of abdominal discomfort, nausea, vomiting, and diarrhea since yesterday. On exam vital signs stable, NAD, nontoxic appearing, abdomen is soft with LLQ tenderness, no rebound or guarding. Concern for diverticulitis vs colitis vs gastroenteritis vs food poisoning. Low suspicion for appendicitis/pancreatitis/cholecystitis/lithiasis, renal stone or pyelo Plan: Labs, UA, CT AP, IVF, antiemetics, re-evaluate Please refer to course for remaining clinical decision making, interpretation of labs/imaging results, and discussions with consultants and/or family members. Differential Diagnosis Differential Diagnoses: The differential diagnosis associated with the presentation includes As above Admission/Observation Consideration of admission/observation: Escalation of care including admission/observation considered Lab Data MDM Lab Attestation statement: I reviewed the patient's lab results. 09/06/25 12:26 09/06/25 12:26 Labs: Lab Results 09/06/25 09/06/25 Range/Units 12: 16:02 WBC 6.9 (4.8-10.8) X10*3/uL RBC 4.84 (4.60-5.80) X10*6/uL Hgb 14.2 (14.0-18.0) g/dl Hct 40.8 L (42.0-52.0) % MCV 84.3 (80.0-98.0) fL MCH 29.3 (27.0-33.0) pg MCHC 34.8 (31.0-36.0) g/dl RDW 12.9 (11.0-16.0) % Plt Count 253 (160-400) X10*3/uL MPV 9.9 (9.4-12.4) fL Immature Gran % (Auto) 0.1 (0.0-0.4) % Neut % (Auto) 66.3 (45-73) % Lymph % (Auto) 26.3 (20-40) % [place] % (Auto) 6.0 (2-11) % Eos % (Auto) 1.2 (0-4) % Baso % (Auto) 0.1 (0-2) % Lymph # (Auto) 1.8 (1.2-4.9) X10*3/uL [place] # (Auto) 0.4 (0.1-1.2) X10*3/uL Eos # (Auto) 0.1 (0.0-0.4) X10*3/uL Baso # (Auto) 0.0 (0.0-0.2) X10*3/uL Abs Immat Gran (auto) 0.01 (0.00-0.03) X10*3/uL Absolute Neuts (auto) 4.6 (2.0-8.3) x10*3/uL Absolute Nucleated RBC 0.000 (0.0-0.012) X10*3/uL Nucleated RBC % (auto) 0.0 (0.0-0.2) /100WBC PT 12.9 (11.2-13.5) SEC INR 1.1 (0.9-1.1) Sodium 141 (135-145) mmol/L Potassium 3.6 (3.3-5.1) mmol/L Chloride 110 H (96-108) mmol/L Carbon Dioxide 25 (22-29) mmol/L Anion Gap 10 L (12-20) BUN 16 (9-16) mg/dL Creatinine 0.71 (0.5-1.4) mg/dL Estim Creat Clear Calc 152.7 Estimated GFR > 60 Random Glucose 114 (60-115) mg/dL Calcium 9.5 (8.4-10.2) mg/dL Magnesium 2.1 (1.6-2.6) mg/dL Total Bilirubin 2.6 H (0.0-1.0) mg/dL AST 32 (5-37) U/L ALT 42 H (0-40) U/L Alkaline Phosphatase 100 (39-117) U/L Total Protein 7.9 (6.5-8.0) g/dL Albumin 4.8 (3.5-5.0) g/dL Lipase 15 (8-78) U/L Acetaminophen < 3 (<30) mcg/mL Ethyl Alcohol 12 mg/dL Influenza Type A (PCR) NEGATIVE (Negative) Influenza Type B (PCR) NEGATIVE (Negative) RSV RNA Qual (PCR) NEGATIVE (Negative) SARS-CoV-2 RNA (RT-PCR) NEGATIVE (Negative) Radiology Impression Discussion of test interpretation with radiology: I have reviewed the radiologist's reading. External Record Review External record reviewed: Inpatient record, Office record, Outpatient record, Prior outpatient labs, Prior outpatient radiology, Primary care record and Outside ED record Tests considered The following testing was considered but not selected: As above Prescription Management I considered prescription management with: Pain Medication and Other Chronic Conditions Patient?s care impacted by: Other Social Determinants Patient?s care significantly limited by Social Determinants of Health including: Problems related to primary support group and Other Social Determinant of Health Discharge Plan Discharge Clinical Impression: Gastroenteritis Patient Disposition: Home, Self-Care Instructions: Gastroenteritis (DC) Additional Instructions: Your blood work shows an elevated total bilirubin to 2.6. YOU NEED TO FOLLOW UP CLOSELY OUTPATIENT WITH GASTROENTEROLOGY AND YOUR PRIMARY CARE DOCTOR. You should have repeat outpatient labs in 1 week Your CAT scan is unremarkable Your hepatitis panel is pending Practice a bland diet, make sure staying hydrated, if symptoms persist or worsen, you have persistent or worsening abdominal pain, inability to tolerate food or liquid or fever return to the emergency department Prescriptions: No Action prednisone 20 mg tablet 60 mg PO DAILY 3 Days Qty: 9 0RF amoxicillin 500 mg capsule 500 mg PO Q8H 10 Days Qty: 30 0RF ibuprofen 800 mg tablet 800 mg PO Q8H PRN (Reason: pain) Qty: 10 0RF Rx Instructions: PRN erythromycin 5 mg/gram (0.5 %) ointment 1 appl ophthalmic-Left Q6H 7 Days Qty: 1 0RF Rx Instructions: Please label in Estonian for the left eye erythromycin 5 mg/gram (0.5 %) ointment 1 appl ophthalmic-Right Q6H Qty: 1 0RF Rx Instructions: Please label in Estonian for the right eye Triple Antibiotic 3.5mg-400 unit- 5,000 unit/gram ointment 1 appl topical BID 7 Days Qty: 28 0RF ibuprofen 600 mg tablet 600 mg PO Q6H PRN (Reason: fever or pain) Qty: 30 0RF amoxicillin 500 mg tablet 1,000 mg PO TID 5 Days Qty: 30 0RF lidocaine [Lidoderm] 5 % adhesive patch,medicated 1 patch topical DAILY Qty: 15 0RF Rx Instructions: leave on most painful area for up to 12 hrs azithromycin 250 mg tablet 250 mg PO DAILY 4 Days Qty: 4 0RF Rx Instructions: start on day 2 of therapy naproxen 500 mg tablet 500 mg PO BID PRN (Reason: pain) 7 Days Qty: 14 0RF Referrals: [facility] [place] [facility] [Provider Group, Gastroenterology] - 1 week Name,MD Devonte [Primary Care Provider, Internal Medicine] - 5 days Stand Alone Forms: Work/School Release Interventions: ED Discharge Assessment Last Done: 09/06/25 19:40 Discharge Date/Time: 09/06/25 19:49 Print Language: Estonian
[2025-09-06 12:41] LABS: Hematocrit 40.8 % (42.0-52.0); Hemoglobin 14.2 g/dl (14.0-18.0); Imm Gran Abs Auto 0.01 X10*3/uL (0.00-0.03); Imm Gran Pct Auto 0.1 % (0.0-0.4); Lymphocytes Absolute Auto 1.8 X10*3/uL (1.2-4.9); MANUAL DIFF FLAG NO; Mean Corpuscular HGB Conc 34.8 g/dl (31.0-36.0); Mean Corpuscular Hemoglobin 29.3 pg (27.0-33.0); Mean Corpuscular Volume 84.3 fL (80.0-98.0); NRBC Abs Auto 0.000 X10*3/uL (0.0-0.012); NRBC Pct Auto 0.0 /100WBC (0.0-0.2); Platelet Count 253 X10*3/uL (160-400); Red Blood Count 4.84 X10*6/uL (4.60-5.80); White Blood Count 6.9 X10*3/uL (4.8-10.8)
[2025-09-06 13:21] LABS: Albumin Level 4.8 g/dL (3.5-5.0); Alkaline Phosphatase 100 U/L (39-117); Anion Gap 10 (12-20); Aspartate Amino Transferase 32 U/L (5-37); Blood Urea Nitrogen 16 mg/dL (9-16); Calcium 9.5 mg/dL (8.4-10.2); Carbon Dioxide 25 mmol/L (22-29); Chloride 110 mmol/L (96-108); Creatinine Clr Calc Pharmacy 152.7; Estimated Glomerular Filt Rate > 60; Lipase 15 U/L (8-78); Magnesium 2.1 mg/dL (1.6-2.6); Potassium 3.6 mmol/L (3.3-5.1); Sodium 141 mmol/L (135-145); Total Protein 7.9 g/dL (6.5-8.0)
[2025-09-06 13:27] LABS: Resp Syncy Virus RNA Qual PCR NEGATIVE (Negative); SARS COV2 PCR INHOUSE NEGATIVE (Negative)
[2025-09-06 13:42] LABS: Alanine Aminotransferase 42 U/L (0-40)
[2025-09-06 15:30] VITALS: BP 118/76; PULSE 88; RESP 19; TEMP 36.6; O2SAT 99
--- OUTSIDE RECORDS SUMMARY | 2025-09-06 16:21 | XMS_ITS | Encounter Summary ---
Author Organization [employer] Address [address] [place] [address] Care Team Providers [employer] Name Role Phone Name, Devonte COLON Primary Care Provider [phone] Encounter Details Date Type Department Care Team ([facility] st Contact Info) Description 09/12/2023 Orders Only [facility] [address] [place], [place] [id number] Marilyn Carvalho LPN Social History Tobacco Use [...] as of this encounter Plan of Treatment Not on file documented as of this encounter Visit Diagnoses Not on filedocumented in this encounter Care Teams [employer] Relationship Specialty Start Date End Date Name, MD Devonte [address] [place] [address] PCP - General Family Medicine 05/03/17 documented as of this encounter
--- OUTSIDE RECORDS SUMMARY | 2025-09-06 16:21 | XMS_ITS | Encounter Summary ---
Author Organization [employer] Address [address] [place] [address] [address] [place] [address] Care Team Providers Care [employer] Name Role Phone Name, Devonte COLON Primary Care Provider [phone] Encounter Details Date Type Department Care Team (Latest Contact Info) Description 03/24/2022 Abstract [facility] CONVERSIONS Dental, Provider, DDS Social History Tobacco Use Types Packs/Day Years Used Date Smoking Tobacco: Never Assessed Sex and Gender Information Value Date Recorded Sex Assigned at Male 08/01/2022 10:31 AM EDT Legal Sex Male 10:31 AM EDT Gender Identity Male 08/01/2022 10:31 AM EDT Sexual Orientation Straight 08/01/2022 10 :31 AM EDT documented as of this encounter Plan of Treatment Not on file documented as of this encounter Visit Diagnoses Not on filedocumented in this encounter Care Teams [employer] Relationship Specialty Start Date End Date Name, MD Devonte [address] [place] [id number] PCP - General Family Medicine 05/03/17 documented as of this encounter
--- OUTSIDE RECORDS SUMMARY | 2025-09-06 16:21 | XMS_ITS | Clinical Summary ---
Author Organization [employer] Address [address] [facility] 7[address] [place] [address] Care Team Providers Care Software Validation Technician Name Role Phone Name, Devonte COLON Primary Care Provider [phone] Allergies No known active allergies Medications SUMAtriptan (Imitrex) 25 MG tabletIndicatio ns:Migraine without aura and without status migrainosus, not intractable Take 1 tablet (25 mg) by mouth continuously if needed (Take 1 tablet by mouth at onset of migraine.May repeat once after 2 hours if needed.No more than 8 tablets per 24 hours). Take 1 tablet by mouth of migraine.May repeat once after 2 hours if needed.No more than 8 tablets per 24 hours. 10 tablet 3 5 Active metoprolol tartrate (Lopressor) 25 MG tablet Take 1 tablet (25 mg) by mouth 2 times daily. 180 tablet 3 5 Active omeprazole (PriLOSEC) [address] capsule Take 1 capsule (40 mg) by mouth before breakfast. Do not crush or chew. 90 capsule 1 5 Active ibuprofen 600 MG tablet Take 1 tablet (600 mg) by mouth 3 times daily. 90 tablet 5 025 Active Problems Problem Noted Date Diagnosed Date Constipation 12/18/2023 Obstructive sleep apnea syndrome 01/09/2023 Migraine 01/09/2023 Kidney stone 01/09/2023 Hypertensive disorder 01/09/2023 Heartburn 01/09/2023 Daytime somnolence 01/09/2023 COVID-19 01/09/2023 Assessment & Plan (05/23/2024 6:52 PM EDT): Pt w COVID 19 infection w 1 to 2 days of symptoms -mild Pt does have BEVERLY and HTN as risk factors -Offered paxlovid but refused -tylenol ,cepacol PRN -NSAIDS prn -supportive tx -hydration -isolation x at least 5 days -request [place] to give to pt excuse letter and explained that is asymptomatic can return to work on day 6 but with N95 for at least 10 days from infection. 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 Muscle atrophy 09/19/2018 Chronic ankle pain 09/19/2018 Left hemiparesis ([facility]/HCC) 05/09/2017 Anoxic encephalopathy ([facility]) 05/09/2017 Overview (04/08/2025): During , residual left sided leg weakness and left ankle deformity Ankle joint deformity 05/09/2017 Resolved Problems Problem Noted Date Diagnosed Date Resolved Date Abdominal discomfort in left lower quadrant 12/18/2023 07/22/2024 Chest wall pain 12/18/2023 07/22/2024 Insomnia 09/19/2018 07/22/2024 Tired 05/18/2018 03/29/2024 Snoring 05/18/2018 07/22/2024 Hypertrophy of tonsils 05/18/201807/22 Apnea 05/18/2018 07/22/2024 Acne 05/09/2017 07/22/2024 Encounters Date Type Department Care Team Description 09/06/2025 Travel 07/08/2025 2:30 PM EDT Office Visit [facility] [address] [place] [phone] NameDevonte MD Migraine without status migrainosus, not intractable, unspecified migraine type (Primary Dx); Hypertension, unspecified type; Chronic pain of right knee; Encounter for immunization 07/08/2025 Travel 07/07/2025 Telephone [facility] [address] [place] [address] NameDevonte MD CHART PREP 06/17/2025 9:00 AM EDT Office Visit [facility] [address] [place] [phone] Gina Martino MD COVID-19 (Primary Dx); Cough in adult patient 06/17/2025 Travel 06/10/2025 Travel from Last 3 Months Immunizations Immunization Administration Dates Next Due Influenza injectable quadrivalent preservative f ree 09/23/2020,09/19/2018 Influenza, seasonal, injectable, preservative fr ee 07/08/2025 Moderna Covid-19 Vaccine 12+ 01/07/2021 Tdap 11/16/2020,05/18/2018 Family History Medical History Relation Name Comments Liver cancer Mother Relation Name Status Comments Mother Social History Tobacco Use Types Packs/Day Years Used Date Smoking Tobacco: Former Cigarettes Passive Smoke Exposure: Current Smokeless Tobacco: Never Tobacco Cessation:Counseling Given: Not Answered Alcohol Use Standard Drinks/Week Comments Not Currently 0 (1 standard drink = 0.6 oz pur e alcohol) social Alcohol Answer Date Recorded Frequency of Alcohol Consumption Not on file 03/29/2024 Average Number of Drinks Not on file 024 Frequency of Binge Drinking Not on file 03/03 Score 0 03/29/2024 Depression Answer Date Recorded Patient Health Questionnaire-9 Score 8 04/08/2025 Patient Health Questionnaire-9 Score 8 04/08/2025 Last PHQ-9: Questionnaire Data Not on file 0 04/08/2025 Housing Stability Answer Date Recorded What is your housing situation today? I have kenisha kaba 03/31/[address] you li ve. Do you have problems with any of the following? None of the above 03/31/2025 Food Insecurity Answer Date Recorded Within the past 12 months, y ou worried that your food would run out before you got money to buy more: Never True 03/31/2025 Within the past 12 months,th e food you bought just didn't last and you didn't have enough money to get more: Never True Transportation Answer Date Recorded In the past 12 months, has l ack of transportation kept you from medical appts, meetings, work or from getting things needed for daily living? No 03/31/2025 Utilities Answer Date Recorded In the past 12 months, has t he electric, gas, oil or water company threatened to shut off services in your home? 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[employer] Not on file Not on file Not on file Last Filed Vital Signs Vital Sign Reading Time Taken Comments Blood Pressure 146/100 07/08/2025 2:31 PM EDT Pulse 90 07/08/2025 2:31 PM EDT Temperature 36.2 C (97.2 F) 07/08/2025 2:31 PM EDT Respiratory Rate 18 07/08/2025 2:31 PM EDT Oxygen Saturation 97% 07/08/2025 2:31 PM EDT Inhaled Oxygen Concentration - - Weight 83.6 kg (184 lb 3.2 oz) 07/08/2025 2:31 P M EDT Height 177.8 cm (5' 10 ) 07/08/2025 2:31 PM EDT Body Mass Index 26.43 07/08/2025 2:31 PM EDT Plan of Treatment Health Maintenance Due Date Last Done Comments Family Planning (PISQ) 2007 HPV Vaccines (1 - Male 3-dos e series) 2007 Hepatitis B Vaccines (1 of 3 - 19+ 3-dose series) 2011 Dental Oral Exam 08/16/2024 02/13/2024 Dental Prophylaxis 08/16/2024 02/13/2024 Dental X-Ray: Bitewings 02/13/2025 02/13/2024 COVID-19 Vaccine (3 - 2024-2 6 season) 2025 02/04/2021, 01/07/2021 Alcohol/Substance Use Screening 11/20/2025 11/20/2024 SDOH Screening 03/31/2026 03/31/2025 Depression Screening 04/08/2026 04/08/2025, 04/08/2025 Disability Screening 04/08/2026 04/08/2025 Tobacco Screening 06/17/2026 06/17/2025 Dental X-Ray: Full Mouth 02/13/2027 02/13/2024 Lipid Panel 02/19/2029 02/20/2024, 12/09/2022, 09/23/2020 DTaP/Tdap/Td Vaccines (3 - T d or Tdap) 11/16/2030 11/16/2020, 05/18/2018 Zoster Vaccines (1 of 2) 2042 RSV Patients and Patients Aged 60 years or older (1 - 1-dose 75+ series) 2067 HIV Screening Completed 09/23/2020 Hepatitis C Screening Completed 05/22/2025 , 09/23/2020 Influenza Vaccine Completed 07/08/2025, 09/23/2020, 09/19/2018 HIB Vaccines Aged Out No longer eligi ble based on patient's age to complete this topic Hepatitis A Vaccines Aged Out No long er eligible based on patient's age to complete this topic IPV Vaccines Aged Out No longer eligi ble based on patient's age to complete this topic Meningococcal B Vaccine Aged Out No l onger eligible based on patient's age to complete this topic Meningococcal Vaccine Aged Out No kai otis eligible based on patient's age to complete this topic Pneumococcal Vaccine: Pediatrics (0 to 5 Years) and At-Risk Patients (6 to 49) Years Aged Out No longer eligible b ased on patient's age to complete this topic RSV under 20 months Aged Out No longe r eligible based on patient's age to complete this topic Rotavirus Vaccines Aged Out No longer eligible based on patient's age to complete this topic Procedures Procedure Name Priority Date/Time Associated Diagnosis Comments ETHANOL Routine 09/06/2025 12:26 PM EST LIPASE Routine 09/06/2025 12:26 PM EST MAGNESIUM Routine 09/06/2025 12:26 PM EST COMPREHENSIVE METABOLIC PANEL Routine 09/06/2025 12:26 PM EST CBC WITH AUTO DIFFERENTIAL Routine 09/06/2025 12:26 PM EST SARS COV2/INFLUENZA A/B AND RSV RNA QL NAAT Routine 09/06/2025 12:26 PM EST POCT INFLUENZA B (ID NOW RAPID MOLECULAR) Routine 06/17/2025 9:13 AM EDT Cough in adult patient POCT INFLUENZA A (ID NOW RAPID MOLECULAR) Routine 06/17/2025 9:13 AM EDT Cough in adult patient POCT RAPID COVID ANTIGEN Routine 06/17/2025 9:12 AM EDT Cough in adult patient HEPATITIS C AB W/REFL TO HCV RNA, QN, PCR Routine 05/22/2025 3:13 PM EDT Need for hepatitis C screening test LIPID PANEL, STANDARD Routine 02/20/2024 11:24 AM EDT PE (physical exam), annual Screening for diabetes mellitus (DM) Screening for cholesterol level PROPHYLAXIS - ADULT Routine 02/13/2024 1 1:00 AM EDT INTRAORAL - COMPLETE SERIES OF RADIOGRAPHIC IMAGES Routine 02/13/2024 11:00 AM EDT PERIODIC ORAL EVALUATION - ESTABLISHED PATIENT Routine 02/13/2024 11:00 AM EDT HIV 1/2 ANTIGEN/ANTIBODY, FOURTH GENERATION W/RFL Routine 09/23/2020 11:18 AM EST from Last 3 Months or Most Recently Relevant to Health Maintenance Results * Ethanol (09/06/2025 12:26 PM EST) ETHANOL (MG/DL) IN SER/PLAS 12 mg/dL [facility] Comment:Serum/plasma ethanol results are to be used formedical/treatment purposes only. 09/06/2025 12:2 6 PM EST 09/06/2025 12:38 PM EST us Generic External Data Provider LAB BLOOD ORDERAB LES Final Result [facility] [address] [place] [address] [phone] * SARS-CoV-2 RNA, Influenza A/B, and RSV RNA, Ql NAAT (09/06/2025 12:26 PM EST) Influenza A PCR NEGATIVE Negative [facility] Influenza B PCR NEGATIVE Negative [facility] Resp Syncy Virus RNA Qual PCR NEGATIVE Negative [facility] SARS COV2 PCR NEGATIVE Negative [facility] Comment:All test results mus t be correlated with clinical findings.Negative results do not preclude SARS-CoV2, influenza Avirus, influenza B virus and/or RSV infectionand should not be used as the sole basis for treatment orother patient management decisions. Negative results must becombined with clinical observations, patient history, andepidemiological information.This test has not been evaluated for monitoring treatment ofinfection.This test has been authorized by the FDA under an EmergencyUse Authorization (EUA) for use by authorized laboratories.Testing performed on the [employer], a [employer] GeneXpert utilizingreal-time RT-PCR.All SARS CoV2 and positive influenza A/B results arereported to [facility]. 09/06/2025 12:2 6 PM EST 09/06/2025 12:38 PM EST us Generic External Data Provider LAB MICROBIOLOGY - GENERAL ORDERABLES Final Result [facility] [address] [place] [phone] * (ABNORMAL) CBC auto differential (09/06/2025 12:26 PM EST) White Blood Count 6.9 4.8 - 10.8 X10*3/uL [facility] Red Blood Count 4.84 4.60 - 5.80 X10*6/uL [facility] Hemoglobin 14.2 14.0 - 18.0 g/dl [facility] Hematocrit 40.8(L) 42.0 - 52.0 % [facility] Mean Corpuscular Volume 84.3 80.0 - 98.0 fL [facility] Mean Corpuscular Hemoglobin 29.3 27.0 - 33.0 pg [facility] Mean Corpuscular HGB Conc 34.8 31.0 - 36.0 g/dl [facility] Red Cell Distribution Width 12.9 11.0 - 16.0 % [facility] Platelet Count 253 160 - 400 X10*3/uL [facility] Mean Platelet Volume 9.9 9.4 - 12.4 fL [facility] Neutrophils Percent Auto 66.3 45 - 73 % [facility] Imm Gran Pct Auto 0.1 0.0 - 0.4 % [facility] Lymphocytes Percent Auto 26.3 20 - 40 % [facility] Monocytes Percent Auto 6.0 2 - 11 % [facility] Eosinophils Percent Auto 1.2 0 - 4 % [facility] Basophils Percent Auto 0.1 0 - 2 % [facility] NRBC Pct Auto 0.0 0.0 - 0.2 /100WBC [facility] Neutrophils Absolute Auto 4.6 2.0 - 8.3 x10*3/uL [facility] Imm Gran Abs Auto 0.01 0.00 - 0.03 X10*3/uL [facility] Lymphocytes Absolute Auto 1.8 1.2 - 4.9 X10*3/uL [facility] Monocytes Absolute Auto 0.4 0.1 - 1.2 X10*3/uL [facility] Eosinophils Absolute Auto 0.1 0.0 - 0.4 X10*3/uL [facility] Basophils Absolute Auto 0.0 0.0 - 0.2 X10*3/uL [facility] NRBC Abs Auto 0.000 0.0 - 0.012 X10*3/uL [facility] 09/06/2025 12:2 6 PM EST 09/06/2025 12:38 PM EST us Generic External Data Provider LAB BLOOD ORDERAB LES Final Result [facility] [address] [place] [phone] * Magnesium (09/06/2025 12:26 PM EST) [facility] Magnesium 2.1 1.6 - 2.6 mg/dL [facility] 09/06/2025 12:2 6 PM EST 09/06/2025 12:38 PM EST Generic External Data Provider LAB BLOOD ORDERAB LES Final Result Performing Organization Address City/[facility] Co de Phone Number [facility] [address] [place] [phone] * Lipase (09/06/2025 12:26 PM EST) [facility] Lipase 15 8 - 78 U/L [facility] 09/06/2025 12:2 6 PM EST 09/06/2025 12:38 PM EST Generic External Data Provider LAB BLOOD ORDERAB LES Final Result Performing Organization Address City/[facility] Co de Phone Number [facility] [address] [place] [phone] * (ABNORMAL) Comprehensive Metabolic Panel (09/06/2025 12:26 PM EST) [facility] Sodium 141 135 - 145 mmol/L [facility] Potassium 3.6 3.3 - 5.1 mmol/L [facility] Chloride 110(H) 96 - 108 mmol/L [facility] Carbon Dioxide 25 22 - 29 mmol/L [facility] Anion Gap 10(L) 12 - 20 [facility] Urea Nitrogen (BUN) 16 9 - 16 mg/dL [facility] Creatinine, Serum 0.71 0.5 - 1.4 mg/dL [facility] Creatinine Clr Calc Pharmacy 152.7 [facility] Comment:eGFR (calculated fro m the MDRD study equation) and eCrCl(calculated from the Cockcroft-Gault equation) are based ondifferent parameters and may not yield comparable results.If eCrCl result is absurd, please check patient'sheight/weight. Estimated Glomerular Filt Rate >60 [facility] Comment:Chronic Kidney Disea se: Estimated GFR < 60 mL/min/1.61d0Qmkgbv Kidney Disease: Estimated GFR < 15 mL/min/1.73m2 Glucose 114 60 - 115 mg/dL [facility] Calcium 9.5 8.4 - 10.2 mg/dL [facility] Bilirubin, Total 2.6(H) 0.0 - 1.0 mg/dL [facility] Comment:Slight Icterus. Aspartate Amino Transferase 32 5 - 37 U/L [facility] Alanine Aminotransferase 42(H) 0 - 40 U/L [facility] Total Protein 7.9 6.5 - 8.0 g/dL [facility] Albumin Level 4.8 3.5 - 5.0 g/dL [facility] Alkaline Phosphatase 100 39 - 117 U/L [facility] 09/06/2025 12:2 6 PM EST 09/06/2025 12:38 PM EST Generic External Data Provider LAB BLOOD ORDERAB LES Final Result Performing Organization Address [facility]/ZIP Co de Phone Number [facility] [address] [place] [phone] * Influenza B (ID NOW Rapid Molecular) (06/17/2025 9:13 AM EDT) Influenza B Negative Negative, Indeterminate [facility] Swab 06/17/2025 9:13 AM EDT Gina Martino MD POINT OF CARE TEST ENTER/EDIT ORDERABLES Final Result Performing Organization Address [facility]/ZIP Co de Phone Number [facility] [address] [place] [phone] * Influenza A (ID NOW Rapid Molecular) (06/17/2025 9:13 AM EDT) Pathologist [facility] Influenza A Negative Negative, Indeterminate [facility] Swab 06/17/2025 9:13 AM EDT Gina Martino MD POINT OF CARE TEST ENTER/EDIT ORDERABLES Final Result Performing Organization Address [facility] Co de Phone Number [facility] [address] [place] [phone] * POCT Rapid COVID Ag (06/17/2025 9:12 AM EDT) [facility] Rapid COVID Ag Positive Swab 06/17/2025 9:12 AM EDT Gina Martino MD POINT OF CARE TEST ENTER/EDIT ORDERABLES Final Result * Hepatitis C Antibody with Reflex to HCV, RNA, Quantitative, Real-Time PCR (05/22/2025 3:13 PM EDT) [facility] Hepatitis C Antibody Nonreactive Nonreactive [facility] Comment:Antibodies to HCV no t detected; does not exclude early acuteHCV infection. Blood Venous blood specimen / Unknown 05/22/2025 3:13 PM EDT 05/22/2025 4:20 PM EDT Devonte Schmitt MD LAB BLOOD ORDERABLES Final Resul t Performing Organization Address City/[facility] Co de Phone Number [facility] [address] [place] [phone] * (ABNORMAL) Lipid Panel, Standard (02/20/2024 11:24 AM EDT) [facility] Triglycerides 126 <150 mg/dL [facility] Comment:Desirable Triglyceri de: less than 150 mg/dLBorderline High Triglyceride 150-199 mg/dLHigh Triglyceride: 200-499 mg/dLVery High Triglyceride: greater than or equal to 5OO mg/dL Cholesterol 182 <200 mg/dL [facility] Comment:Desirable Cholestero l: less than 200 mg/dLBorderline High Cholesterol: 200-239 mg/dLHigh Cholesterol: greater than 239 mg/dL LDL Cholesterol Calculated 119(H) <100 mg/dL [facility] Comment:Desirable LDL: less than 100 mg/dLNear Optimal/Above Optimal LDL: 110- 129 mg/dLBorderline High LDL: 130-159 mg/dLHigh LDL: 160-189 mg/dLVery High LDL: greater than or equal to 190 mg/dL HDL Cholesterol 38(L) >40 mg/dL [facility] Comment:Desirable HDL: great er than 40 mg/dL Note: This HDL assay may give artificially low results in patients with liver disease. Blood Venous blood specimen / Unknown 02/20/2024 11:24 AM EDT 02/20/2024 1:08 PM EDT us Devonte Name LAB BLOOD ORDERABLES Final Resul t [facility] [address] [place] [phone] * HIV 1/2 ANTIGEN/ANTIBODY,FOURTH GENERATION W/RFL (09/23/2020 11:18 AM EST) Pathologist [facility] HIV-1/2 ANTIGEN AND ANTIBODIES, 4TH GENERATION W/ REFLEX NON-REACT VALERY NON-REACT VALERY [facility] Comment: HIV-1 antigen and HIV-1/HIV-2 antibodies were not detected. There is no laboratory evidence of HIV infection. PLEASE NOTE: This information has been disclosed to you from records whose confidentiality may be protected by state law. If your state requires such protection, then the state law prohibits you from making any further disclosure of the information without the specific written consent of the person to whom it pertains, or as otherwise permitted by law. A general authorization for the release of medical or other information is NOT sufficient for this purpose. For additional information please refer to http://[email or web address].ws/faq/KFB754 (This link is being provided for informational/ educational purposes only.) The performance of this assay has not been clinically validated in patients less than 2 years old. 09/23/2020 11:1 8 AM EST us Devonte Schmitt MD LAB BLOOD ORDERABLES Final Resul t [facility] [address] [place] [address], from Last 3 Months or Most Recently Relevant to Health Maintenance Insurance [facility] - HSN FULL (MEDICAID) Care Teams Software Validation Technician Relationship Specialty Start Date End Date Name, MD Devonte [address] [place] [phone] PCP - General Family Medicine 05/03/17
--- OUTSIDE RECORDS SUMMARY | 2025-09-06 16:22 | XMS_ITS | Encounter Summary ---
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
--- OUTSIDE RECORDS SUMMARY | 2025-09-06 16:22 | XMS_ITS | Encounter Summary ---
Author Organization [employer] Address [address] [place] [address] [address] [place] [address] Care Team Providers Care Heavy Line Technician Name Role Phone Name, Devonte COLON Primary Care Provider [phone] Reason for Visit * Reason Onset Date Comments Referral 06/27/2023 Encounter Details Date Type Department Care Team ([facility] st Contact Info) Description 06/27/[address] [facility] [address] [place] [phone] Name, MD Devonte [address] [place] [phone] Referral Social History Tobacco Use Types Packs/Day Years Used Date Smoking Tobacco: Every Day Cigarettes Passive Smoke Exposure: Current Smokeless Tobacco: Never Sex and Gender Information Value Date Recorded Sex Assigned at Male 08/01/2022 10:31 AM EDT Legal Sex Male 10:31 AM EDT Gender Identity Male 08/01/2022 10:31 AM EDT Sexual Orientation Straight 08/01/2022 10 :31 AM EDT documented as of this encounter Miscellaneous Notes * Telephone Encounter - Elba Lai - 06/27/2023 1:16 PM EDT Referral refaxed to Dr Mo * Telephone Encounter - Dawn Abrams - 06/27/2023 12:36 PM EDT Tc from states he has called Dr. Mo office to schedule appointment and they advised him theyhave not received referral. documented in this encounter Plan of Treatment Not on file documented as of this encounter Visit Diagnoses Not on filedocumented in this encounter Care Teams Heavy Line Technician Relationship Specialty Start Date End Date Name, MD Devonte [address] [place] [address] PCP - General Family Medicine 05/03/17 documented as of this encounter
[2025-09-06 16:23] LABS: INTERNATIONAL NORM RATIO 1.1 (0.9-1.1); Prothrombin Time 12.9 SEC (11.2-13.5)
[2025-09-06 16:43] LABS: Acetaminophen LAB < 3 mcg/mL (<30)
[2025-09-06] MEDS: iohexoL 350 MG/ML 100 ML INFUS..BTL IV (17:32)
[2025-09-06 18:49] VITALS: BP 101/57; PULSE 73; RESP 18; TEMP 36.7; O2SAT 99
[2025-09-06 19:40] VITALS: BP 101/57; PULSE 73; RESP 18; TEMP 36.7; O2SAT 99
[2025-09-08 08:14] LABS: HBS Num1 0.65 mIU/mL (0-7.99); HBc Num1 0.41 S/CO (0.00-0.79); HBsAGNum1 0.40 S/CO (0.00-0.99); Hepatitis A Antibody IgM 0.23 Index (0-0.79); Hepatitis B Surface Antigen Negative (Negative); ~HepC Num1 0.11 S/CO (0.00-0.79); ~Hepatitis A Antibody IgM Nonreactive (Nonreactive); ~Hepatitis B Surface Antibody NONREACTIVE (Nonreactive); ~Hepatitis C Antibody Nonreactive (Nonreactive)
== END 2025-09-06 19:49 | disposition home or self-care (01) ==
PROVIDERS: Physician Assistant; Physician Assistant Medical; Emergency Provider Emergency Medicine; PCP Internal Medicine Geriatric Medicine
DX: K52.9 Noninfective gastroenteritis and colitis, unspecified (principal); R10.32 Left lower quadrant pain; R11.2 Nausea with vomiting, unspecified; Z03.818 Encounter for observation for suspected exposure to other biological agents ruled out
CPT/HCPCS: 36415; 74177; 80053; 80143; 80307; 83690; 83735; 85025; 85610; 86704; 86706; 86709; 86803; 87340; 87637; 96361; 96374; 99283; 99285; J2405; Q9967

== ENCOUNTER → 2025-09-06 15:32 | Outpatient (BNV) | payer OTHER, SELFPAY | PROVIDERS: Emergency Provider Emergency Medicine; PCP Internal Medicine Geriatric Medicine; Visit Provider Student in an Organized Health Care Education/Training Program | DX: K57.30 Diverticulosis of large intestine without perforation or abscess without bleeding (principal) | CPT/HCPCS: 74177 ==